=== PATIENT | female | born 1975 | race African-American/Black ===

== ENCOUNTER 2016-04-23 11:00 | Emergency (ER) | payer MEDICARE, OTHER ==
[~2016-04-23] VITALS: Ht 170.2 cm; Wt 114.8 kg
[~2016-04-23 11:00] MED LIST: CEPH-264 PO; FLUC150T PO; HYDR-971 PO; MYCO500T PO; NAPR250T2 PO; NAPR375T3 PO; PHEN-318 PO; PRED10TA16 PO; PROC10TA57 PO; PYRI180T PO; PYRI60TA2 PO
[2016-04-23 11:55] VITALS: BP 149/92
[2016-04-23 12:21] LABS: BILIRUBIN,URINE NEGATIVE (NEG); GLUCOSE,URINE NEGATIVE (NEG); NITRITE,URINE NEGATIVE (NEG); PROTEIN,URINE NEGATIVE (NEG-TRACE); UROBILINOGEN,URINE 0.2 mg/dL (0.2 mg/dL)
[2016-04-23 12:35] LABS: BACTERIA,URINE 0 /HPF (0-FEW); RBC,URINE 0 /HPF (0-2); SQUAMOUS EPITHELIAL CELL,UR MOD /LPF; WBC,URINE 0 /HPF (0-4)
[2016-04-23] MEDS ORDERED: SULF1TAB24 PO (13:20)
--- NOTE | 2016-04-23 13:20 | PHYS DOC ---
Past Medical History Past Medical History: Other Additional Past Medical Histor: MYASTHANIA GRAVIS Past Surgical History: Other Additional Past Surgical Histo: THYMECTOMY Alcohol Use: None Drug Use: None Adult General Chief Complaint Chief Complaint: PAIN ON URINATION [facility] HPI Patient is a 40 year old presents emergency department stating that she has urinary frequency urgency or pain with urination. She states this is been going on for the last couple of days. Patient denies any vaginal discharge. She also states she has a history of constipation that she is taking MiraLAX for this. Patient denies any fever, chills or any nausea or vomiting. Review of Systems Review of Systems Constitutional: Denies fever or chills [] Eyes: Denies change in visual acuity, redness, or eye pain [] HENT: Denies nasal congestion or sore throat. Point of sinus pressure and pain Respiratory: Denies cough or shortness of breath [] Cardiovascular: No additional information not addressed in HPI [] GI: Denies abdominal pain, nausea, vomiting, bloody stools or diarrhea [] : dysuria denies hematuria [] Musculoskeletal: Denies back pain or joint pain [] Integument: Denies rash or skin lesions. She also complains of an area under her left breast that is tender that appears to be like a blackhead she states Neurologic: Denies headache, focal weakness or sensory changes [] Allergies Allergies Allergies Coded Allergies Type Severity Reaction Last Updated Verified No Known Drug Allergies 06/30/13 No Physical Exam Physical Exam Constitutional: Well developed, well nourished, no acute distress, non-toxic appearance. [] HENT: Normocephalic, atraumatic, bilateral external ears normal, oropharynx moist, no oral exudates, nose normal. Bilateral tympanic membranes appear to be normal. Bilateral sinuses frontal and maxillary with tenderness noted throat with no erythematous. Eyes: PERRLA, EOMI, conjunctiva normal, no discharge. [] Neck: Normal range of motion, no tenderness, supple, no stridor. [] Cardiovascular:Heart rate regular rhythm, no murmur [] Lungs & Thorax: Bilateral breath sounds clear to auscultation [] Skin: Warm, dry, no erythema, no rash. Patient with a pea size area on her underside of the left breast that is tender appears to be a blackhead Back: No tenderness Extremities: No tenderness, no cyanosis, no clubbing, ROM intact, no edema. [] Neurologic: Alert and oriented X 3, normal motor function, normal sensory function, no focal deficits noted. [] Psychologic: Affect normal, judgement normal, mood normal. [] Current Patient Data Vital Signs Vital Signs Date Time Temp Pulse Resp B/P Pulse Ox O2 Delivery O2 Flow Rate FiO2 04/23/16 11:55 98.1 67 18 149/92 95 Room Air 98.1 Lab Values Laboratory Tests Test 04/23/16 11:52 Urine Collection Type Unknown Urine Color Yellow Urine Clarity Clear Urine pH 5.0 Urine Specific [place] 1.025 Urine Protein Negativemg/dL (NEG-TRACE) Urine Glucose (UA) Negativemg/dL (NEG) Urine Ketones (Stick) Negativemg/dL (NEG) Urine Blood Trace (NEG) Urine Nitrite Negative (NEG) Urine Bilirubin Negative (NEG) Urine Urobilinogen Dipstick 0.2mg/dL (0.2 mg/dL) Urine Leukocyte Esterase Negative (NEG) Urine RBC 0/HPF (0-2) Urine WBC 0/HPF (0-4) Urine Squamous Epithelial Cells Mod/LPF Urine Bacteria 0/HPF (0-FEW) Urine Mucus Marked/LPF EKG EKG [] Radiology/Procedures Radiology/Procedures [] Course & Med Decision Making Course & Med Decision Making Pertinent Labs and Imaging studies reviewed. (See chart for details) Urine was positive for trace of blood. Patient will be treated with Bactrim. I& D was completed on the tender area under the left breast. Site was cleaned with Betadine 18-gauge needle was used to open up the area without small amount of yellow discharge noted. Patient will be placed on Bactrim for both urinary tract infection skin tenderness in the area that was indeed as well as a sinus infection. Recommended Sudafed for the sinus pressure. Recommended Tylenol and ibuprofen for pain and discomfort. Patient be discharged home in stable condition since symptoms to return back to emergency department been provided. [] Dragon Disclaimer Dragon Disclaimer This electronic medical record was generated, in whole or in part, using a voice recognition dictation system. Departure Departure Impression: Primary Impression: Dysuria Additional Impressions: Sinusitis Abscess Disposition: 01 HOME, SELF-CARE Condition: STABLE Referrals: KHAI KELLEY (PCP) Patient Instructions: Abscess, [id number], Dysuria-Brief, Sinusitis, Easy-to- Read Additional Instructions: Activity as tolerated. Medications as prescribed. Drink plenty of fluids. Drink plenty of water and cranberry juice. Avoid cranberry juice cocktail carbonate beverages citrus fruits and alcohol sees her considered irritants to the bladder. Follow-up with her primary care physician in the next 3-5 days. Return back to emergency prior signs symptoms of become worse. Scripts Sulfamethoxazole/Trimethoprim (Bactrim Ds Tablet)1 Each Tablet1 Tab PO BID #20 TAB Prov:AR WOODWARD NP 04/23/16 Problem Qualifiers AR WOODWARD NP Apr 23, 2016 13:20
[2016-04-23] MEDS ORDERED: FLUC150T PO (13:26)
[2016-04-23 14:43] LABS: NEG OBC UR NEG; POS OBC UR POS
== END 2016-04-23 13:25 | disposition home or self-care (01) ==
LOC: ER 11:00
DX: R30.0 Dysuria (principal); N61.1 Abscess of the breast and nipple; J32.9 Chronic sinusitis, unspecified; K59.00 Constipation, unspecified
CPT/HCPCS: 10060; 81001; 81025; 99283

== ENCOUNTER 2016-09-09 23:37 | Emergency (ER) | payer MEDICARE, OTHER ==
[~2016-09-09] VITALS: Ht 170.2 cm; Wt 117.9 kg
[~2016-09-09 23:37] MED LIST changes: +SULF1TAB24 PO
[2016-09-10 01:10] LABS: BILIRUBIN,URINE NEGATIVE (NEG); GLUCOSE,URINE NEGATIVE (NEG); NITRITE,URINE NEGATIVE (NEG); PROTEIN,URINE NEGATIVE (NEG-TRACE); UROBILINOGEN,URINE 0.2 mg/dL (0.2 mg/dL)
[2016-09-10 01:16] LABS: BACTERIA,URINE FEW /HPF (0-FEW); RBC,URINE 0 /HPF (0-2); SQUAMOUS EPITHELIAL CELL,UR MOD /LPF
[2016-09-10] MEDS ORDERED: DICY10CA53 PO (02:14)
[2016-09-10] MEDS ORDERED: ONDA4TAB10 SL (02:14)
--- NOTE | 2016-09-10 02:14 | PHYS DOC ---
Past Medical History Past Medical History: UTI, Other Additional Past Medical Histor: MYASTHANIA GRAVIS, IVIG tx Past Surgical History: Other Additional Past Surgical Histo: THYMECTOMY Alcohol Use: None Drug Use: None Adult General Chief Complaint Chief Complaint: ABDOMINAL PAIN HPI HPI Patient is a 41 year old female who presents with crampy intermittent lower abdominal pain that is mild and associated with urinary frequency. She also has mild low back pain bilaterally, no trauma; denies saddle anesthesia, bowel or bladder dysfunction, numbness, tingling, weakness. She is concerned about strep pharyngitis exposure from her daughter. She denies fever or chills, chest pain, cough, sore throat, vomiting, diarrhea, constipation, hematuria, vaginal bleeding or discharge. Review of Systems Review of Systems Constitutional: Denies fever or chills [] Eyes: Denies change in visual acuity, redness, or eye pain [] HENT: Denies nasal congestion or sore throat [] Respiratory: Denies cough or shortness of breath [] Cardiovascular: No additional information not addressed in HPI [] GI: Denies vomiting, bloody stools or diarrhea [] : Denies dysuria or hematuria [] Musculoskeletal: Denies joint pain [] Integument: Denies rash or skin lesions [] Neurologic: Denies headache, focal weakness or sensory changes [] Endocrine: Denies polyuria or polydipsia [] Allergies Allergies Allergies Coded Allergies Type Severity Reaction Last Updated Verified No Known Drug Allergies 06/30/13 No Physical Exam Physical Exam Constitutional: Well developed, well nourished, no acute distress, non-toxic appearance. [] HENT: Normocephalic, atraumatic, bilateral external ears normal, oropharynx moist, no oral exudates, nose normal. [] Eyes: PERRLA, EOMI. [] Neck: Normal range of motion, supple. [] Cardiovascular:Heart rate regular rhythm [] Lungs & Thorax: Bilateral breath sounds clear to auscultation [] Abdomen: Bowel sounds normal, soft, no tenderness. [] Skin: Warm, dry, no erythema, no rash. [] Back: No tenderness, no CVA tenderness. [] Extremities: No tenderness, ROM intact, no edema. [] Neurologic: Alert and oriented X 3, normal motor function, normal sensory function, no focal deficits noted. [] Psychologic: Affect normal, judgement normal, mood normal. [] Current Patient Data Vital Signs Vital Signs Date Time Temp Pulse Resp B/P (MAP) Pulse Ox O2 Delivery O2 Flow Rate FiO2 09/10/16 02:15 74 16 123/68 (86) 98 Room Air 09/10/16 01:08 98.4 98.4 Lab Values Laboratory Tests Test 09/10/16 00:12 09/10/16 00:55 POC Urine HCG, Qualitative Hcg negative (Negative) Urine Collection Type Unknown Urine Color Yellow Urine Clarity Turbid Urine pH 6.0 Urine Specific [place] >=1.030 Urine Protein Negative mg/dL (NEG-TRACE) Urine Glucose (UA) Negative mg/dL (NEG) Urine Ketones (Stick) Negative mg/dL (NEG) Urine Blood Negative (NEG) Urine Nitrite Negative (NEG) Urine Bilirubin Negative (NEG) Urine Urobilinogen Dipstick 0.2 mg/dL (0.2 mg/dL) Urine Leukocyte Esterase Negative (NEG) Urine RBC 0 /HPF (0-2) Urine WBC 1-4 /HPF (0-4) Urine Squamous Epithelial Cells Mod /LPF Urine Bacteria Few /HPF (0-FEW) Urine Mucus Marked /LPF Course & Med Decision Making Course & Med Decision Making Pertinent Labs and Imaging studies reviewed. (See chart for details) She appears well on exam. Workup is unremarkable. Discussed supportive care for symptoms. Return precautions given. She understands and agrees with plan. Dragon Disclaimer Dragon Disclaimer This electronic medical record was generated, in whole or in part, using a voice recognition dictation system. Departure Departure Impression: Primary Impression: Abdominal pain Additional Impression: Nausea Disposition: 01 HOME, SELF-CARE Condition: STABLE Referrals: KHAI KELLEY (PCP) Patient Instructions: Abdominal Pain, [id number] Additional Instructions: Zofran as needed for nausea. Take Bentyl to help with abdominal pain. You can also take Tylenol or ibuprofen to help with abdominal pain. Follow-up with your primary care doctor within one week. Return for any concerns. Scripts Dicyclomine Hcl (BENTYL) 10 Mg Capsule 1 CAP PO TID, #15 CAP 0 Refills Prov: Kaylin DAVE MD 09/10/16 Ondansetron (ZOFRAN ODT) 4 Mg Tab.rapdis 1 TAB SL Q8HRS Y for NAUSEA, #10 TAB Prov: Kaylin DAVE MD 09/10/16 Problem Qualifiers Primary Impression: Abdominal pain Abdominal location: lower abdomen, unspecified Qualified Codes: R10.30 - Lower abdominal pain, unspecified Kaylin DAVE MD Sep 10, 2016 02:14
[2016-09-10 02:15] VITALS: BP 123/68
== END 2016-09-10 02:19 | disposition home or self-care (01) ==
LOC: ER 23:37
DX: R10.30 Lower abdominal pain, unspecified (principal); R35.0 Frequency of micturition; R11.0 Nausea; M54.5 Low back pain; Z87.440 Personal history of urinary (tract) infections
CPT/HCPCS: 81001; 81025; 99283

== ENCOUNTER 2016-10-25 17:46 | Emergency (ER) | payer MEDICARE, OTHER ==
[~2016-10-25] VITALS: Ht 170.2 cm; Wt 122.9 kg
[~2016-10-25 17:46] MED LIST changes: +DICY10CA53 PO; +ONDA4TAB10 SL
[2016-10-25 17:53] VITALS: BP 145/93
[2016-10-25 18:38] LABS: BILIRUBIN,URINE NEGATIVE (NEG); GLUCOSE,URINE NEGATIVE (NEG); NITRITE,URINE NEGATIVE (NEG); PH,URINE 7.5; PROTEIN,URINE NEGATIVE (NEG-TRACE); UROBILINOGEN,URINE 0.2 mg/dL (0.2 mg/dL)
[2016-10-25 18:47] LABS: RBC,URINE OCC /HPF (0-2)
[2016-10-25 18:48] LABS: BACTERIA,URINE FEW /HPF (0-FEW); SQUAMOUS EPITHELIAL CELL,UR FEW /LPF; WBC,URINE OCC /HPF (0-4)
[2016-10-25] MEDS ORDERED: SULF1TAB24 PO (19:27)
[2016-10-25] MEDS ORDERED: FLUC150T PO (19:27)
--- NOTE | 2016-10-25 19:27 | PHYS DOC ---
Past Medical History Past Medical History: UTI, Other Additional Past Medical Histor: MYASTHANIA GRAVIS, IVIG tx Past Surgical History: Other Additional Past Surgical Histo: THYMECTOMY Alcohol Use: None Drug Use: None Adult General Chief Complaint Chief Complaint: URINARY FREQUENCY HPI HPI Patient is a 41 year old female with history of Graves' disease, and chronic UTIs who presents today complaining of UTI symptoms including urgency frequency dysuria and abdominal cramping for 3 days. Patient states this is her typical UTI and she would like to be treated. Patient denies any fever nausea vomiting. Review of Systems Review of Systems Constitutional: Denies fever or chills [] Eyes: Denies change in visual acuity, redness, or eye pain [] HENT: Denies nasal congestion or sore throat [] Respiratory: Denies cough or shortness of breath [] Cardiovascular: No additional information not addressed in HPI [] GI: Abdominal cramping : Dysuria urgency and frequency Musculoskeletal: Denies back pain or joint pain [] Integument: Denies rash or skin lesions [] Neurologic: Denies headache, focal weakness or sensory changes [] Endocrine: Denies polyuria or polydipsia [] Allergies Allergies Allergies Coded Allergies Type Severity Reaction Last Updated Verified No Known Drug Allergies 06/30/13 No Physical Exam Physical Exam Constitutional: Well developed, well nourished, no acute distress, non-toxic appearance. [] HENT: Normocephalic, atraumatic, bilateral external ears normal, oropharynx moist, no oral exudates, nose normal. [] Eyes: PERRLA, EOMI, conjunctiva normal, no discharge. [] Neck: Normal range of motion, no tenderness, supple, no stridor. [] Cardiovascular:Heart rate regular rhythm, no murmur [] Lungs & Thorax: Bilateral breath sounds clear to auscultation [] Abdomen: Bowel sounds normal, soft, no tenderness, no masses, no pulsatile masses. [] Skin: Warm, dry, no erythema, no rash. [] Back: No tenderness, no CVA tenderness. [] Extremities: No tenderness, no cyanosis, no clubbing, ROM intact, no edema. [] Neurologic: Alert and oriented X 3, normal motor function, normal sensory function, no focal deficits noted. [] Psychologic: Affect normal, judgement normal, mood normal. [] Current Patient Data Vital Signs Vital Signs Date Time Temp Pulse Resp B/P (MAP) Pulse Ox O2 Delivery O2 Flow Rate FiO2 10/25/16 17:53 98.4 71 16 98 Room Air 98.4 Lab Values Laboratory Tests Test 10/25/16 17:14 10/25/16 18:00 POC Urine HCG, Qualitative Hcg negative (Negative) Urine Collection Type Void Urine Color Yellow Urine Clarity Clear Urine pH 7.5 Urine Specific [place] <=1.005 Urine Protein Negative mg/dL (NEG-TRACE) Urine Glucose (UA) Negative mg/dL (NEG) Urine Ketones (Stick) Negative mg/dL (NEG) Urine Blood Negative (NEG) Urine Nitrite Negative (NEG) Urine Bilirubin Negative (NEG) Urine Urobilinogen Dipstick 0.2 mg/dL (0.2 mg/dL) Urine Leukocyte Esterase Negative (NEG) Urine RBC Occ /HPF (0-2) Urine WBC Occ /HPF (0-4) Urine Squamous Epithelial Cells Few /LPF Urine Bacteria Few /HPF (0-FEW) EKG EKG [] Radiology/Procedures Radiology/Procedures [] Course & Med Decision Making Course & Med Decision Making Pertinent Labs and Imaging studies reviewed. (See chart for details) This is a 41-year-old female patient presented to the ED with the UTI symptoms. Urine is negative for infection. Patient states she has history of frequent UTIs and would like to be given antibiotics regardless of the negative urine results because she gets immunosuppressant infusions for Graves' disease and if she gets a UTI it will be a very bad infection. She feels this is the beginning of UTI for her. Urine was sent culture. He was discharged with Bactrim for 3 days, she also requested fluconazole which was given to her. She is to follow- up with her own PCP. Dragon Disclaimer Dragon Disclaimer This electronic medical record was generated, in whole or in part, using a voice recognition dictation system. Departure Departure Impression: Primary Impression: Dysuria Disposition: 01 HOME, SELF-CARE Condition: STABLE Referrals: KHAI KELLEY (PCP) Follow-up with your doctor in 1-2 weeks Patient Instructions: Dysuria-Brief Additional Instructions: You were seen with urinary tract infection symptoms. Take the medications provided as ordered. Follow-up with your doctor in the next 1 week. Scripts Fluconazole (DIFLUCAN) 150 Mg Tablet 1 TAB PO ONCE, #1 TAB 1 Refill Prov: RASHEED SCALES APRN 10/25/16 Sulfamethoxazole/Trimethoprim (BACTRIM DS TABLET) 1 Each Tablet 1 TAB PO BID, #20 TAB Prov: RASHEED SCALES APRN 10/25/16 RASHEED SCALES APRN Oct 25, 2016 19:27
== END 2016-10-25 19:39 | disposition home or self-care (01) ==
LOC: ER 17:46
DX: R30.0 Dysuria (principal); R35.0 Frequency of micturition; R10.9 Unspecified abdominal pain; Z87.440 Personal history of urinary (tract) infections
CPT/HCPCS: 81001; 81025; 99283

== ENCOUNTER 2016-12-27 12:36 | Emergency (ER) | payer MEDICARE, OTHER ==
[~2016-12-27 12:36] MED LIST changes: +NAPR-695 PO; -NAPR250T2 PO; +NAPR250T6 PO; -NAPR375T3 PO
--- NOTE | 2016-12-27 13:13 | PHYS DOC ---
Past Medical History Past Medical History: UTI, Other Additional Past Medical Histor: MYASTHANIA GRAVIS, IVIG tx Past Surgical History: Other Additional Past Surgical Histo: THYMECTOMY Alcohol Use: None Drug Use: None Adult General Chief Complaint Chief Complaint: ABDOMINAL PAIN HPI HPI Patient is a 41 year old -[place] female who presents with suprapubic abdominal cramps. She states this is the same cream she gets when she has her period or urinary tract infection. She states she is one week late on her period. She denies any nausea vomiting or diarrhea. She denies any vaginal bleeding or discharge. She states she's been stressed out because her first cousin was killed, and the was a couple days ago. Review of Systems Review of Systems Constitutional: Denies fever or chills [] Eyes: Denies change in visual acuity, redness, or eye pain [] HENT: Denies nasal congestion or sore throat [] Respiratory: Denies cough or shortness of breath [] Cardiovascular: No additional information not addressed in HPI [] GI: Positive for abdominal pain, Denies nausea, vomiting, bloody stools or diarrhea [] : Denies dysuria or hematuria [] Musculoskeletal: Denies back pain or joint pain [] Integument: Denies rash or skin lesions [] Neurologic: Denies headache, focal weakness or sensory changes [] Endocrine: Denies polyuria or polydipsia [] Current Medications Current Medications Current Medications Medications (Trade) Dose Ordered Sig/[facility] Start Time Stop Time Status Last Admin Dose Admin Levofloxacin (Levaquin) 500 mg 1X ONCE 12/27/16 14:45 12/27/16 14:47 DC Allergies Allergies Allergies Coded Allergies Type Severity Reaction Last Updated Verified No Known Drug Allergies 06/30/13 No Physical Exam Physical Exam Constitutional: Well developed, well nourished, no acute distress, non-toxic appearance. [] HENT: Normocephalic, atraumatic, bilateral external ears normal, oropharynx moist, no oral exudates, nose normal. [] Eyes: PERRLA, EOMI, conjunctiva normal, no discharge. [] Neck: Normal range of motion, no tenderness, supple, no stridor. [] Cardiovascular:Heart rate regular rhythm, no murmur [] Lungs & Thorax: Bilateral breath sounds clear to auscultation [] Abdomen: Bowel sounds normal, soft, no tenderness, no masses, no pulsatile masses. [] Skin: Warm, dry, no erythema, no rash. [] Back: No tenderness, no CVA tenderness. [] Extremities: No tenderness, no cyanosis, no clubbing, ROM intact, no edema. [] Neurologic: Alert and oriented X 3, normal motor function, normal sensory function, no focal deficits noted. [] Psychologic: Affect normal, judgement normal, mood normal. [] Current Patient Data Vital Signs Vital Signs Date Time Temp Pulse Resp B/P (MAP) Pulse Ox O2 Delivery O2 Flow Rate FiO2 12/27/16 13:30 74 154/79 (104) 98 Room Air 12/27/16 13:04 98.8 18 98.8 Lab Values Laboratory Tests Test 12/27/16 13:01 12/27/16 13:12 12/27/16 13:40 Urine Collection Type Unknown Urine Color Yellow Urine Clarity Clear Urine pH 6.0 Urine Specific [place] 1.020 Urine Protein Negative mg/dL (NEG-TRACE) Urine Glucose (UA) Negative mg/dL (NEG) Urine Ketones (Stick) Negative mg/dL (NEG) Urine Blood Negative (NEG) Urine Nitrite Negative (NEG) Urine Bilirubin Negative (NEG) Urine Urobilinogen Dipstick 0.2 mg/dL (0.2 mg/dL) Urine Leukocyte Esterase Large (NEG) Urine RBC 0 /HPF (0-2) Urine WBC 20-40 /HPF (0-4) Urine Squamous Epithelial Cells Many /LPF Urine Bacteria Moderate /HPF (0-FEW) Urine Mucus Marked /LPF POC Urine HCG, Qualitative Hcg negative (Negative) White Blood Count 6.8 x10^3/uL (4.0-11.0) Red Blood Count 5.03 x10^6/uL (3.50-5.40) Hemoglobin 14.1 g/dL (12.0-15.5) Hematocrit 42.1 % (36.0-47.0) Mean Corpuscular Volume 84 fL (79-100) Mean Corpuscular Hemoglobin 28 pg (25-35) Mean Corpuscular Hemoglobin Concent 33 g/dL (31-37) Red Cell Distribution Width 13.5 % (11.5-14.5) Platelet Count 233 x10^3/uL (140-400) Neutrophils (%) (Auto) 53 % (31-73) Lymphocytes (%) (Auto) 32 % (24-48) Monocytes (%) (Auto) 9 % (0-9) Eosinophils (%) (Auto) 4 % (0-3) H Basophils (%) (Auto) 1 % (0-3) Neutrophils # (Auto) 3.6 x10^3uL (1.8-7.7) Lymphocytes # (Auto) 2.2 x10^3/uL (1.0-4.8) Monocytes # (Auto) 0.6 x10^3/uL (0.0-1.1) Eosinophils # (Auto) 0.3 x10^3/uL (0.0-0.7) Basophils # (Auto) 0.1 x10^3/uL (0.0-0.2) Prothrombin Time 11.7 SEC (11.7-14.0) Prothrombin Time INR 0.9 (0.8-1.1) PTT 28 SEC (24-38) Sodium Level 138 mmol/L (136-145) Potassium Level 3.8 mmol/L (3.5-5.1) Chloride Level 104 mmol/L (98-107) Carbon Dioxide Level 27 mmol/L (21-32) Anion Gap 7 (6-14) Blood Urea Nitrogen 10 mg/dL (7-20) Creatinine 0.7 mg/dL (0.6-1.0) Estimated GFR (Cockcroft-Gault) 112.1 Glucose Level 100 mg/dL (70-99) H Calcium Level 9.3 mg/dL (8.5-10.1) Total Bilirubin 0.2 mg/dL (0.2-1.0) Direct Bilirubin < 0.1 mg/dL (0.0-0.2) Aspartate Amino Transferase (AST) 15 U/L (15-37) Alanine Aminotransferase (ALT) 15 U/L (14-59) Alkaline Phosphatase 72 U/L (46-116) Creatine Kinase 186 U/L (26-192) Creatine Kinase MB (Mass) < 0.5 ng/mL (0.0-3.6) Creatine Kinase MB Relative Index 0.3 % (0-4) Total Protein 7.5 g/dL (6.4-8.2) Albumin 3.4 g/dL (3.4-5.0) Lipase 254 U/L (73-393) Laboratory Tests 12/27/16 13:40 Laboratory Tests 12/27/16 13:40 EKG EKG [] Radiology/Procedures Radiology/Procedures [] Impressions: UTI Course & Med Decision Making Course & Med Decision Making Pertinent Labs and Imaging studies reviewed. (See chart for details) Labs are nonacute. She does have urinary tract infection. We'll give 1 dose of Levaquin and discharged home. Return precautions given. Dragon Disclaimer Dragon Disclaimer This electronic medical record was generated, in whole or in part, using a voice recognition dictation system. Departure Departure Impression: Primary Impression: Urinary tract bacterial infections Disposition: HOME, SELF-CARE Condition: STABLE Referrals: KHAI KELLEY (PCP) Patient Instructions: Urinary Tract Infection Additional Instructions: You have a bladder infection based on labs and urinalysis. You will need take antibiotics for the next 3 days. Return ER if you have severe pain, high fevers , uncontrolled nausea vomiting or other concerns. Scripts Levofloxacin (LEVAQUIN) 500 Mg Tablet 1 TAB PO DAILY, #3 TAB Prov: CIRILO ANDERSON MD 12/27/16 CIRILO ANDERSON MD Dec 27, 2016 13:13
[2016-12-27 13:30] VITALS: BP 154/79
[2016-12-27 13:48] LABS: BILIRUBIN,URINE NEGATIVE (NEG); GLUCOSE,URINE NEGATIVE (NEG); NITRITE,URINE NEGATIVE (NEG); PROTEIN,URINE NEGATIVE (NEG-TRACE); UROBILINOGEN,URINE 0.2 mg/dL (0.2 mg/dL)
[2016-12-27 13:56] LABS: BASO # 0.1 x10^3/uL (0.0-0.2); BASO % 1 % (0-3); EOS % 4 % (0-3); HEMATOCRIT 42.1 % (36.0-47.0); HEMOGLOBIN 14.1 g/dL (12.0-15.5); LYMPH # 2.2 x10^3/uL (1.0-4.8); LYMPH % 32 % (24-48); MEAN CORPUSCULAR HEMOGLOBIN 28 pg (25-35); MEAN CORPUSCULAR HGB CONC 33 g/dL (31-37); MEAN CORPUSCULAR VOLUME 84 fL (79-100); MONO % 9 % (0-9); NEUT % 53 % (31-73); PLATELET COUNT 233 x10^3/uL (140-400); RED BLOOD COUNT 5.03 x10^6/uL (3.50-5.40); RED CELL DISTRIBUTION WIDTH 13.5 % (11.5-14.5); WHITE BLOOD COUNT 6.8 x10^3/uL (4.0-11.0)
[2016-12-27 14:02] LABS: BACTERIA,URINE MODERATE /HPF (0-FEW); RBC,URINE 0 /HPF (0-2); SQUAMOUS EPITHELIAL CELL,UR MANY /LPF; WBC,URINE 20-40 /HPF (0-4)
[2016-12-27 14:04] LABS: INR 0.9 (0.8-1.1); PROTHROMBIN TIME PATIENT 11.7 SEC (11.7-14.0)
[2016-12-27 14:06] LABS: ANION GAP 7 (6-14); BLOOD UREA NITROGEN 10 mg/dL (7-20); CALCIUM 9.3 mg/dL (8.5-10.1); CARBON DIOXIDE 27 mmol/L (21-32); CHLORIDE 104 mmol/L (98-107); CREATININE 0.7 mg/dL (0.6-1.0); GFR 112.1; GLUCOSE 100 mg/dL (70-99); POTASSIUM 3.8 mmol/L (3.5-5.1); SODIUM 138 mmol/L (136-145)
[2016-12-27 14:11] LABS: ALBUMIN 3.4 g/dL (3.4-5.0); ALK PHOS 72 U/L (46-116); ALT (SGPT) 15 U/L (14-59); AST (SGOT) 15 U/L (15-37); DIRECT BILIRUBIN < 0.1 mg/dL (0.0-0.2); TOTAL BILIRUBIN 0.2 mg/dL (0.2-1.0); TOTAL PROTEIN 7.5 g/dL (6.4-8.2)
[2016-12-27 14:19] LABS: CREATINE KINASE 186 U/L (26-192)
[2016-12-27 14:20] LABS: CKMB MASS < 0.5 ng/mL (0.0-3.6)
[2016-12-27] MEDS ORDERED: LEVO500T59 PO (14:41)
[2016-12-27] MEDS ORDERED: FLUCONAZOLE 100 MG TABLET. PO ONE (15:15)
== END 2016-12-27 15:10 | disposition home or self-care (01) ==
LOC: ER 12:36
DX: N39.0 Urinary tract infection, site not specified (principal); B96.89 Other specified bacterial agents as the cause of diseases classified elsewhere; Z87.440 Personal history of urinary (tract) infections
CPT/HCPCS: 36415; 80048; 80076; 81001; 81025; 82553; 83690; 85025; 85610; 85730; 87086; 99284

== ENCOUNTER 2017-04-06 04:24 | Emergency (ER) | payer MEDICARE, OTHER ==
[2017-04-06] MEDS: IPRATRPIUM/ALBUTEROL 0.5/2.5MG 3 ML NEBU. NEB (04:43)
[2017-04-06] MEDS: methylPREDNISolone SOD SUCC PF 125 MG/2 ML VIAL. IV (05:04)
[2017-04-06] MEDS: IV NORMAL SALINE 1000ML BAG 1,000 ML IV (05:10)
[2017-04-06 05:14] LABS: BASO # 0.1 x10^3/uL (0.0-0.2); BASO % 1 % (0-3); EOS # 0.4 x10^3/uL (0.0-0.7); EOS % 8 % (0-3); HEMATOCRIT 41.7 % (36.0-47.0); HEMOGLOBIN 13.7 g/dL (12.0-15.5); LYMPH # 1.6 x10^3/uL (1.0-4.8); LYMPH % 31 % (24-48); MEAN CORPUSCULAR HEMOGLOBIN 28 pg (25-35); MEAN CORPUSCULAR HGB CONC 33 g/dL (31-37); MEAN CORPUSCULAR VOLUME 86 fL (79-100); MONO % 20 % (0-9); NEUT % 40 % (31-73); PLATELET COUNT 220 x10^3/uL (140-400); RED BLOOD COUNT 4.88 x10^6/uL (3.50-5.40); RED CELL DISTRIBUTION WIDTH 13.5 % (11.5-14.5); WHITE BLOOD COUNT 5.1 x10^3/uL (4.0-11.0)
[2017-04-06 05:26] LABS: ANION GAP 16 (6-14); BLOOD UREA NITROGEN 10 mg/dL (7-20); CALCIUM 8.9 mg/dL (8.5-10.1); CARBON DIOXIDE 23 mmol/L (21-32); CHLORIDE 102 mmol/L (98-107); CREATININE 0.9 mg/dL (0.6-1.0); GFR 83.9; GLUCOSE 134 mg/dL (70-99); POTASSIUM 3.3 mmol/L (3.5-5.1); SODIUM 141 mmol/L (136-145)
[2017-04-06 05:31] LABS: ADD MAN DIFF? YES
[2017-04-06 05:37] LABS: D-DIMER < 0.27 ug/mlFEU (0.00-0.50)
[2017-04-06 05:57] LABS: TROPONINI < 0.017 ng/mL (0.000-0.055)
[2017-04-06 10:40] LABS: % ATYL 3 % (0-0); % BANDS 9 % (0-9); % EOS 6 % (0-5); % LYMPHS 29 % (24-48); % MONOS 15 % (0-10); % SEGS 38 % (35-66); PLT ESTIMATE ADEQUATE (ADEQUATE)
== END 2017-04-06 06:52 | disposition home or self-care (01) ==
LOC: ER 04:24
DX: J06.9 Acute upper respiratory infection, unspecified (principal); J98.01 Acute bronchospasm; R53.1 Weakness; J45.909 Unspecified asthma, uncomplicated; G70.00 Myasthenia gravis without (acute) exacerbation
CPT/HCPCS: 36415; 71045; 80048; 84484; 85007; 85025; 85379; 93005; 94640; 96361; 96374; 99284-25; J2930; J7030; J7620

== ENCOUNTER 2017-06-02 02:21 | Emergency (ER) | payer MEDICARE, OTHER ==
[2017-06-02] MEDS ORDERED: DEXAMETHASONE SOD PHOS 4 MG/ML VIAL IM (03:30)
[2017-06-02 09:36] LABS: NEGATIVE OBC STREP NEG; POSITIVE OBC STREP POS
== END 2017-06-02 03:20 | disposition home or self-care (01) ==
LOC: ER 02:21
DX: J06.9 Acute upper respiratory infection, unspecified (principal)
CPT/HCPCS: 87070; 87880; 99283

== ENCOUNTER 2017-11-27 15:08 | Emergency (ER) | payer MEDICARE, OTHER ==
[~2017-11-27] VITALS: Ht 170.2 cm; Wt 117.0 kg
[~2017-11-27 15:08] MED LIST changes: +AZIT250T6 PO; +CETI10TA22 PO; +CYCL5TAB PO; +FOLI1TAB16 PO; +IBUP200T44 PO; +IMMU10VI8 IJ; +LEVO500T59 PO; +LISI1TAB5 PO; +OMEP10SU2 PO; +PNV1TABL71 PO; +POLY17PO29 PO; +PRED50TA PO; +PROAIR HFA8.5 GM INH; +PROVENTIL HFA6.7 GM IH; +RANI150T21 PO; +RITU10VI IV; +TRAM-48 PO; +[UNRECOGNIZED DRUG - OTHER]
--- NOTE | 2017-11-27 16:02 | PHYS DOC ---
Past Medical History Past Medical History: UTI, Other Additional Past Medical Histor: MYASTHANIA GRAVIS, IVIG tx,rituxin Past Surgical History: Other Additional Past Surgical Histo: THYMECTOMY, right fallopian tube Alcohol Use: None Drug Use: None Adult General Chief Complaint Chief Complaint: [facility] HPI Patient is a 42 year old female who presents with left abdomen pain that feels like a cramping that wraps around to her left flank since last week with some nausea. Patient states her last period was October 18. Patient states she has no abnormal vaginal discharge or bleeding. Patient denies any urinary symptoms or blood in her urine. Patient states that she does have slight nausea. Patient rates her pain a 3 out of 10 and states she's been taking Excedrin and Midol with the last being at 0600 this morning. Review of Systems Review of Systems Constitutional: Denies fever or chills [] Eyes: Denies change in visual acuity, redness, or eye pain [] HENT: Denies nasal congestion or sore throat [] Respiratory: Denies cough or shortness of breath [] Cardiovascular: No additional information not addressed in HPI [] GI: Left abdominal cramping pain, nausea. Denies vomiting, bloody stools or diarrhea [] : Left lower back and flank pain. Denies dysuria or hematuria [] Musculoskeletal: Denies back pain or joint pain [] Integument: Denies rash or skin lesions [] Neurologic: Denies headache, focal weakness or sensory changes [] Endocrine: Denies polyuria or polydipsia [] All other systems were reviewed and found to be within normal limits, except as documented in this note. Allergies Allergies Allergies Coded Allergies Type Severity Reaction Last Updated Verified No Known Drug Allergies 06/30/13 No Physical Exam Physical Exam Constitutional: Well developed, well nourished, no acute distress, non-toxic appearance. [] HENT: Normocephalic, atraumatic, bilateral external ears normal, oropharynx moist, no oral exudates, nose normal. [] Eyes: PERRLA, EOMI, conjunctiva normal, no discharge. [] Neck: Normal range of motion, no tenderness, supple, no stridor. [] Cardiovascular:Heart rate regular rhythm, no murmur [] Lungs & Thorax: Bilateral breath sounds clear to auscultation [] Abdomen: Bowel sounds normal, soft, no tenderness, no masses, no pulsatile masses. [] Skin: Warm, dry, no erythema, no rash. [] Back: No tenderness, no CVA tenderness. [] Extremities: No tenderness, no cyanosis, no clubbing, ROM intact, no edema. [] Neurologic: Alert and oriented X 3, normal motor function, normal sensory function, no focal deficits noted. [] Psychologic: Affect normal, judgement normal, mood normal. [] Current Patient Data Vital Signs Vital Signs Date Time Temp Pulse Resp B/P (MAP) Pulse Ox O2 Delivery O2 Flow Rate FiO2 11/27/17 18:11 81 18 192/96 (128) 96 Room Air 11/27/17 15:27 98.9 98.9 Lab Values Laboratory Tests Test 11/27/17 15:22 11/27/17 15:35 11/27/17 16:40 Urine Collection Type Unknown Urine Color Yellow Urine Clarity Clear Urine pH 5.0 Urine Specific [place] 1.025 Urine Protein Negative mg/dL (NEG-TRACE) Urine Glucose (UA) Negative mg/dL (NEG) Urine Ketones (Stick) Negative mg/dL (NEG) Urine Blood Trace (NEG) Urine Nitrite Negative (NEG) Urine Bilirubin Negative (NEG) Urine Urobilinogen Dipstick 0.2 mg/dL (0.2 mg/dL) Urine Leukocyte Esterase Moderate (NEG) Urine RBC Occ /HPF (0-2) Urine WBC 5-10 /HPF (0-4) Urine Squamous Epithelial Cells Many /LPF Urine Bacteria Many /HPF (0-FEW) Urine Mucus Marked /LPF POC Urine HCG, Qualitative Hcg positive (Negative) White Blood Count 6.1 x10^3/uL (4.0-11.0) Red Blood Count 4.42 x10^6/uL (3.50-5.40) Hemoglobin 12.6 g/dL (12.0-15.5) Hematocrit 37.1 % (36.0-47.0) Mean Corpuscular Volume 84 fL (79-100) Mean Corpuscular Hemoglobin 28 pg (25-35) Mean Corpuscular Hemoglobin Concent 34 g/dL (31-37) Red Cell Distribution Width 13.9 % (11.5-14.5) Platelet Count 251 x10^3/uL (140-400) Neutrophils (%) (Auto) 58 % (31-73) Lymphocytes (%) (Auto) 26 % (24-48) Monocytes (%) (Auto) 9 % (0-9) Eosinophils (%) (Auto) 6 % (0-3) H Basophils (%) (Auto) 1 % (0-3) Neutrophils # (Auto) 3.5 x10^3uL (1.8-7.7) Lymphocytes # (Auto) 1.6 x10^3/uL (1.0-4.8) Monocytes # (Auto) 0.5 x10^3/uL (0.0-1.1) Eosinophils # (Auto) 0.4 x10^3/uL (0.0-0.7) Basophils # (Auto) 0.1 x10^3/uL (0.0-0.2) Maternal Serum HCG Beta Subunit 16 mIU/mL (0-5) H Sodium Level 136 mmol/L (136-145) Potassium Level 3.4 mmol/L (3.5-5.1) L Chloride Level 106 mmol/L (98-107) Carbon Dioxide Level 22 mmol/L (21-32) Anion Gap 8 (6-14) Blood Urea Nitrogen 8 mg/dL (7-20) Creatinine 0.7 mg/dL (0.6-1.0) Estimated GFR (Cockcroft-Gault) 111.6 Glucose Level 100 mg/dL (70-99) H Calcium Level 8.9 mg/dL (8.5-10.1) Laboratory Tests 11/27/17 16:40 Laboratory Tests 11/27/17 16:40 Microbiology 11/27/17 Urine Culture - Final, Complete 11/27/17 Urine Culture Result 1 (BHARGAVI) - Final, Complete EKG EKG [] Radiology/Procedures Radiology/Procedures Pelvic ultrasound[] Impressions: [facility] [address] [place] [address] IMAGING REPORT Signed PATIENT: DAVID GALLARDO ACCOUNT: [id number] : 1975 LOCATION: ER AGE: 42 SEX: F EXAM STATUS: REG ER ORD. PHYSICIAN: AR MITCHELL APRN REASON: and left sided abdominal pain PROCEDURE: OB <14 WKS W/TV Early OB ultrasound History: Left pelvic pain. Comparison: None. Technique: Transabdominal imaging was performed for initial evaluation of the pelvis. Endovaginal imaging was performed to evaluate optimally the lower uterine segment and to increase sensitivity for detection of intrauterine . Findings: Transabdominal imaging: Uterus measures 10.4 cm in length. No convincing intrauterine is identified. The endometrium is thickened at 29 mm. Posterior uterus demonstrates a subserosal leiomyoma measuring 1.8 cm Left ovary measures 4.0 x 5.6 x 4.1 cm and demonstrates 3.5 cm corpus luteum cyst. Right ovary is not visualized. Left ovary demonstrates normal vascular flow upon Doppler interrogation and is without evidence of torsion. Endovaginal imaging: Endometrial thickness is 19 mm cyst. No intrauterine is identified. Nabothian cyst is seen. Left ovary measures 4.3 x 3.4 x 2.6 cm and demonstrates a corpus luteum cyst measuring 3.3 cm. Left ovary demonstrates normal vascular flow upon Doppler interrogation and is without evidence of torsion. Right ovary is not visualized. No adnexal masses are seen. Impression: 1. No intrauterine is identified. Correlative beta hCG levels are not available at the time of dictation. Statistically, most likely possibility is exceedingly early intrauterine . Ectopic cannot be excluded, although there is no positive ultrasound evidence of such. Serial beta hCG levels and pelvic ultrasound could be performed as clinically indicated. 2. Uterine leiomyoma. Electronically signed by: Hilario Ramirez MD (11/27/2017 4:41 PM) [facility] DICTATED and SIGNED BY: HILARIO RAMIREZ MD DATE: 11/27/17 1640 Course & Med Decision Making Course & Med Decision Making Patient is a 42 year old female who presents with left abdomen pain that feels like a cramping that wraps around to her left flank since last week with some nausea. Patient states her last period was October 18. Patient states she has no abnormal vaginal discharge or bleeding. Patient denies any urinary symptoms or blood in her urine. Patient states that she does have slight nausea. Patient rates her pain a 3 out of 10 and states she's been taking Excedrin and Midol with the last being at 0600 this morning. Patient does have a history of myasthenia gravis, right tubectomy with an ectopic back in August, thyroidectomy, and myasthenia gravis. Patient is on myasthenia gravis medications and receives IVIG times a week. On examination patient's abdomen is soft, nontender, and without masses. Patient is neurologically intact. Patient denies any numbness or tingling at this time. Patient denies any chest pain or shortness of breath. Patient has no CVA tenderness. Patient is afebrile. Patient's urine blood test came back positive for day in the ED. I have told the patient but she did not seem surprised. Pelvic ultrasound shows 1. No intrauterine is identified. Correlative beta hCG levels are not available at the time of dictation. Statistically, most likely possibility is exceedingly early intrauterine . Ectopic cannot be excluded, although there is no positive ultrasound evidence of such. Patients Serum Quant is 16. Serial beta hCG levels and pelvic ultrasound could be performed as clinically indicated. 2. Uterine leiomyoma. Patient will need to follow-up with her [facility] END SPECIALIST as soon as possible. Patient needs to return to ER if pain comes intense or begins vomiting or running a fever. Patient is to take Tylenol for any kind of pain. Staff Physician Addendum: I was working in the ER during the course of this patient's visit. I was available for consultation as needed, but I was not directly involved in the care of this patient. [] Dragon Disclaimer Dragon Disclaimer This electronic medical record was generated, in whole or in part, using a voice recognition dictation system. Departure Departure Impression: Primary Impression: Abdominal pain Additional Impression: Disposition: 01 HOME, SELF-CARE Condition: STABLE Referrals: KHAI KELLEY MD (PCP) Patient Instructions: ABCs of , Abdominal Pain During Additional Instructions: Follow up with your FRONT END SPECIALIST as soon as possible. Take Tylenol for pain. Return for increasing abdominal pain or vaginal bleeding. Problem Qualifiers Primary Impression: Abdominal pain Abdominal location: left lower quadrant Qualified Codes: R10.32 - Left lower quadrant pain Additional Impression: Weeks of gestation: unspecified Qualified Codes: Z34.90 - Encounter for supervision of normal , unspecified, unspecified trimester AR MITCHELL APRN Nov 27, 2017 16:02 LEATHA MADERA MD Nov 30, 2017 02:06
[2017-11-27 16:30] LABS: BILIRUBIN,URINE NEGATIVE (NEG); CLARITY,URINE CLEAR; COLOR,URINE YELLOW; NITRITE,URINE NEGATIVE (NEG); PROTEIN,URINE NEGATIVE (NEG-TRACE); UROBILINOGEN,URINE 0.2 mg/dL (0.2 mg/dL)
[2017-11-27 16:44] LABS: BACTERIA,URINE MANY /HPF (0-FEW); RBC,URINE OCC /HPF (0-2); SQUAMOUS EPITHELIAL CELL,UR MANY /LPF
--- NOTE | 2017-11-27 16:45 | RAD ---
Early OB ultrasound History: Left pelvic pain. Comparison: None. Technique: Transabdominal imaging was performed for initial evaluation of the pelvis. Endovaginal imaging was performed to evaluate optimally the lower uterine segment and to increase sensitivity for detection of intrauterine . Findings: Transabdominal imaging: Uterus measures 10.4 cm in length. No convincing intrauterine is identified. The endometrium is thickened at 29 mm. Posterior uterus demonstrates a subserosal leiomyoma measuring 1.8 cm Left ovary measures 4.0 x 5.6 x 4.1 cm and demonstrates 3.5 cm corpus luteum cyst. Right ovary is not visualized. Left ovary demonstrates normal vascular flow upon Doppler interrogation and is without evidence of torsion. Endovaginal imaging: Endometrial thickness is 19 mm cyst. No intrauterine is identified. Nabothian cyst is seen. Left ovary measures 4.3 x 3.4 x 2.6 cm and demonstrates a corpus luteum cyst measuring 3.3 cm. Left ovary demonstrates normal vascular flow upon Doppler interrogation and is without evidence of torsion. Right ovary is not visualized. No adnexal masses are seen. Impression: 1. No intrauterine is identified. Correlative beta hCG levels are not available at the time of dictation. Statistically, most likely possibility is exceedingly early intrauterine . Ectopic cannot be excluded, although there is no positive ultrasound evidence of such. Serial beta hCG levels and pelvic ultrasound could be performed as clinically indicated. 2. Uterine leiomyoma. Electronically signed by: Hilario Hager MD (11/27/2017 4:41 PM) [facility]
[2017-11-27 16:59] LABS: BASO # 0.1 x10^3/uL (0.0-0.2); BASO % 1 % (0-3); EOS # 0.4 x10^3/uL (0.0-0.7); EOS % 6 % (0-3); HEMATOCRIT 37.1 % (36.0-47.0); HEMOGLOBIN 12.6 g/dL (12.0-15.5); LYMPH # 1.6 x10^3/uL (1.0-4.8); LYMPH % 26 % (24-48); MEAN CORPUSCULAR HEMOGLOBIN 28 pg (25-35); MEAN CORPUSCULAR HGB CONC 34 g/dL (31-37); MEAN CORPUSCULAR VOLUME 84 fL (79-100); MONO # 0.5 x10^3/uL (0.0-1.1); MONO % 9 % (0-9); NEUT # 3.5 x10^3uL (1.8-7.7); NEUT % 58 % (31-73); PLATELET COUNT 251 x10^3/uL (140-400); RED BLOOD COUNT 4.42 x10^6/uL (3.50-5.40); RED CELL DISTRIBUTION WIDTH 13.9 % (11.5-14.5); WHITE BLOOD COUNT 6.1 x10^3/uL (4.0-11.0)
[2017-11-27 17:17] LABS: CALCIUM 8.9 mg/dL (8.5-10.1); CREATININE 0.7 mg/dL (0.6-1.0); GFR 111.6; POTASSIUM 3.4 mmol/L (3.5-5.1)
[2017-11-27 18:11] VITALS: BP 192/96
== END 2017-11-27 18:12 | disposition home or self-care (01) ==
LOC: ER 15:08
DX: Z33.1 Pregnant state, incidental (principal); R10.9 Unspecified abdominal pain; M54.5 Low back pain; R11.0 Nausea; Z87.440 Personal history of urinary (tract) infections; Z98.890 Other specified postprocedural states
CPT/HCPCS: 36415; 76801; 76817; 80048; 81001; 81025; 84702; 85025; 86900; 86901; 87086; 99285-25

== ENCOUNTER 2017-12-24 00:53 | Emergency (ER) | payer MEDICARE, OTHER ==
[~2017-12-24] VITALS: Ht 170.2 cm; Wt 117.0 kg
[2017-12-24 02:13] LABS: BILIRUBIN,URINE NEGATIVE (NEG); CLARITY,URINE CLEAR; COLOR,URINE YELLOW; NITRITE,URINE NEGATIVE (NEG); PH,URINE 5.5; PROTEIN,URINE NEGATIVE (NEG-TRACE); UROBILINOGEN,URINE 0.2 mg/dL (0.2 mg/dL)
[2017-12-24 02:22] LABS: BACTERIA,URINE FEW /HPF (0-FEW); RBC,URINE OCC /HPF (0-2); WBC,URINE OCC /HPF (0-4)
[2017-12-24 02:23] LABS: U PREG PATIENT NEGATIVE (NEG)
[2017-12-24 02:47] LABS: BASO # 0.1 x10^3/uL (0.0-0.2); BASO % 1 % (0-3); EOS # 0.2 x10^3/uL (0.0-0.7); EOS % 5 % (0-3); HEMATOCRIT 40.2 % (36.0-47.0); HEMOGLOBIN 13.7 g/dL (12.0-15.5); LYMPH # 1.5 x10^3/uL (1.0-4.8); LYMPH % 29 % (24-48); MEAN CORPUSCULAR HEMOGLOBIN 28 pg (25-35); MEAN CORPUSCULAR HGB CONC 34 g/dL (31-37); MEAN CORPUSCULAR VOLUME 83 fL (79-100); MONO # 0.6 x10^3/uL (0.0-1.1); MONO % 12 % (0-9); NEUT # 2.9 x10^3uL (1.8-7.7); NEUT % 54 % (31-73); PLATELET COUNT 287 x10^3/uL (140-400); RED BLOOD COUNT 4.84 x10^6/uL (3.50-5.40); WHITE BLOOD COUNT 5.3 x10^3/uL (4.0-11.0)
--- NOTE | 2017-12-24 02:51 | RAD ---
Chest AP portable at 0211: Reason for examination: Chest pain and dizziness. Comparison is made to previous study dated 04/06/2017. There are postop changes in the sternum. The heart size is normal. Mediastinum is unremarkable. Lung morel are clear. There continues to be some elevation of the right hemidiaphragm which is unchanged. No acute bony abnormalities are seen. Impression: No acute cardiopulmonary disease. Electronically signed by: Kaylie Plascencia MD (12/24/2017 2:48 AM) [facility]
[2017-12-24 03:00] LABS: CALCIUM 9.3 mg/dL (8.5-10.1); CREATININE 0.9 mg/dL (0.6-1.0); GFR 83.5; POTASSIUM 3.5 mmol/L (3.5-5.1)
[2017-12-24 03:07] LABS: ALBUMIN 3.4 g/dL (3.4-5.0); ALBUMIN/GLOBULIN RATIO 0.9 (1.0-1.7); TOTAL BILIRUBIN 0.2 mg/dL (0.2-1.0); TOTAL PROTEIN 7.4 g/dL (6.4-8.2)
[2017-12-24 03:30] VITALS: BP 117/57
--- NOTE | 2017-12-24 05:41 | PHYS DOC ---
Past Medical History Past Medical History: UTI, Other Additional Past Medical Histor: MYASTHANIA GRAVIS, IVIG tx,rituxin Past Surgical History: Other Additional Past Surgical Histo: THYMECTOMY, right fallopian tube Alcohol Use: None Drug Use: None Adult General Chief Complaint Chief Complaint: DIZZY/LIGHT HEADED HPI HPI Patient is a 42 year old female with history of chronic myasthenia gravis requiring IVIG infusions every 3 weeks at [facility] and migraines who presents with generalized weakness, fatigue and dizziness. Patient states she frequently gets migraine headaches following IVIG infusions. States current headache started 3 days ago. Reports nausea with decreased oral intake. No fevers chills, vomiting or sweats. No chest pain, shortness of breath. No abdominal pain. No other acute symptoms or complaints. [] Review of Systems Review of Systems Review symptoms as per history of present illness. All other review symptoms are negative. All other systems were reviewed and found to be within normal limits, except as documented in this note. Allergies Allergies Allergies Coded Allergies Type Severity Reaction Last Updated Verified No Known Drug Allergies 06/30/13 No Physical Exam Physical Exam Constitutional: Well developed, well nourished, no acute distress, non-toxic appearance. [] HENT: Normocephalic, atraumatic, bilateral external ears normal, oropharynx moist, no oral exudates, nose normal. [] Eyes: PERRLA, EOMI, drooping of upper eyelids.. [] Neck: Normal range of motion, no tenderness, supple, no stridor. [] Cardiovascular:Heart rate regular rhythm, no murmur [] Lungs & Thorax: Bilateral breath sounds clear to auscultation [] Abdomen: Bowel sounds normal, soft, no tenderness, no masses, no pulsatile masses. [] Skin: Warm, dry, no erythema, no rash. [] Back: No tenderness, no CVA tenderness. [] Extremities: No tenderness, no cyanosis, no clubbing, ROM intact, no edema. [] Neurologic: Alert and oriented X 3, normal motor function, normal sensory function, no focal deficits noted. [] Psychologic: Affect normal, judgement normal, mood normal. [] Current Patient Data Vital Signs Vital Signs Date Time Temp Pulse Resp B/P (MAP) Pulse Ox O2 Delivery O2 Flow Rate FiO2 12/24/17 03:30 82 99 12/24/17 01:00 99.3 16 131/65 (87) Room Air 99.3 Lab Values Laboratory Tests Test 12/24/17 00:55 12/24/17 02:30 Urine Collection Type Unknown Urine Color Yellow Urine Clarity Clear Urine pH 5.5 Urine Specific [place] <=1.005 Urine Protein Negative mg/dL (NEG-TRACE) Urine Glucose (UA) Negative mg/dL (NEG) Urine Ketones (Stick) Negative mg/dL (NEG) Urine Blood Negative (NEG) Urine Nitrite Negative (NEG) Urine Bilirubin Negative (NEG) Urine Urobilinogen Dipstick 0.2 mg/dL (0.2 mg/dL) Urine Leukocyte Esterase Negative (NEG) Urine RBC Occ /HPF (0-2) Urine WBC Occ /HPF (0-4) Urine Bacteria Few /HPF (0-FEW) Urine Test Negative (NEG) White Blood Count 5.3 x10^3/uL (4.0-11.0) Red Blood Count 4.84 x10^6/uL (3.50-5.40) Hemoglobin 13.7 g/dL (12.0-15.5) Hematocrit 40.2 % (36.0-47.0) Mean Corpuscular Volume 83 fL (79-100) Mean Corpuscular Hemoglobin 28 pg (25-35) Mean Corpuscular Hemoglobin Concent 34 g/dL (31-37) Red Cell Distribution Width 14.0 % (11.5-14.5) Platelet Count 287 x10^3/uL (140-400) Neutrophils (%) (Auto) 54 % (31-73) Lymphocytes (%) (Auto) 29 % (24-48) Monocytes (%) (Auto) 12 % (0-9) H Eosinophils (%) (Auto) 5 % (0-3) H Basophils (%) (Auto) 1 % (0-3) Neutrophils # (Auto) 2.9 x10^3uL (1.8-7.7) Lymphocytes # (Auto) 1.5 x10^3/uL (1.0-4.8) Monocytes # (Auto) 0.6 x10^3/uL (0.0-1.1) Eosinophils # (Auto) 0.2 x10^3/uL (0.0-0.7) Basophils # (Auto) 0.1 x10^3/uL (0.0-0.2) Sodium Level 138 mmol/L (136-145) Potassium Level 3.5 mmol/L (3.5-5.1) Chloride Level 102 mmol/L (98-107) Carbon Dioxide Level 28 mmol/L (21-32) Anion Gap 8 (6-14) Blood Urea Nitrogen 15 mg/dL (7-20) Creatinine 0.9 mg/dL (0.6-1.0) Estimated GFR (Cockcroft-Gault) 83.5 BUN/Creatinine Ratio 17 (6-20) Glucose Level 110 mg/dL (70-99) H Calcium Level 9.3 mg/dL (8.5-10.1) Total Bilirubin 0.2 mg/dL (0.2-1.0) Aspartate Amino Transferase (AST) 12 U/L (15-37) L Alanine Aminotransferase (ALT) 19 U/L (14-59) Alkaline Phosphatase 67 U/L (46-116) Total Protein 7.4 g/dL (6.4-8.2) Albumin 3.4 g/dL (3.4-5.0) Albumin/Globulin Ratio 0.9 (1.0-1.7) L Laboratory Tests 12/24/17 02:30 Laboratory Tests 12/24/17 02:30 EKG EKG [] Radiology/Procedures Radiology/Procedures [] Course & Med Decision Making Course & Med Decision Making Pertinent Labs and Imaging studies reviewed. (See chart for details) [Dizziness likely related to mild dehydration. Symptoms improved to the ED with treatment. Requests discharge home. Return precautions reviewed.] Dragon Disclaimer Dragon Disclaimer This electronic medical record was generated, in whole or in part, using a voice recognition dictation system. Departure Departure Impression: Primary Impression: Dizziness Additional Impression: Migraine Disposition: HOME, SELF-CARE Condition: GOOD Patient Instructions: Dizziness, [id number] Additional Instructions: You were evaluated in the emergency department for dizziness. Lab work and imaging studies were performed and are nondiagnostic. The cause of your symptoms has not been determined. Please go home and rest, increase fluids and take Excedrin Migraine as needed for headache. Follow-up with your PCP early next week if symptoms persist. Return to the ED if new or worsening symptoms. Problem Qualifiers AUSTEN CALVIN DO Dec 24, 2017 05:41
--- NOTE | 2017-12-24 13:06 | EKG ---
[facility] [address] [place] [address] Test Date: 2017-12-24 Test Time: 01:27:46 Pat Name: DAVID GALLARDO Department: Room: Gender: F Bench Mechanic: DANUTA : 1975 Requested By: AUSTEN CALVIN Order Number: [id number] Reading MD: Measurements Intervals [place] Rate: 74 P: 32 WI: 152 QRS: -4 QRSD: 84 T: -2 QT: 424 QTc: 476 Interpretive Statements SINUS RHYTHM LEFTWARD AXIS QRS(T) CONTOUR ABNORMALITY CONSISTENT WITH INFERIOR INFARCT AGE UNDETERMINED ABNORMAL ECG No previous ECG available for comparison
== END 2017-12-24 03:36 | disposition home or self-care (01) ==
LOC: ER 00:53
DX: R42 Dizziness and giddiness (principal); G43.909 Migraine, unspecified, not intractable, without status migrainosus; R53.1 Weakness
CPT/HCPCS: 36415; 71045; 80053; 81001; 81025; 85025; 93005; 99285-25

== ENCOUNTER 2018-02-05 17:14 | Emergency (ER) | payer MEDICARE, OTHER ==
[~2018-02-05] VITALS: Ht 170.2 cm; Wt 120.2 kg
[~2018-02-05 17:14] MED LIST changes: +HYDR-3164 PO; -HYDR-971 PO
[2018-02-05 17:40] VITALS: BP 162/100
[2018-02-05] MEDS ORDERED: LIDOCAINE WITH 8.4% SOD BICARB 3 ML DISP.SYRIN. INJ ONE (18:00)
[2018-02-05] MEDS ORDERED: LIDOCAINE/EPI/TETRACAINE TOPICAL GEL 3 ML. TP ONE (18:00)
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
== END 2018-02-05 19:40 | disposition home or self-care (01) ==
LOC: ER 17:14
DX: S46.222A Laceration of muscle, fascia and tendon of other parts of biceps, left arm, initial encounter (principal); Y04.8XXA Assault by other bodily force, initial encounter; Y93.89 Activity, other specified; Y92.89 Other specified places as the place of occurrence of the external cause; Y99.8 Other external cause status
CPT/HCPCS: 12002; 73060; 99283-25

== ENCOUNTER 2018-02-15 09:11 | Emergency (ER) | payer MEDICARE, OTHER ==
[~2018-02-15] VITALS: Ht 167.6 cm; Wt 99.8 kg
[2018-02-15 09:30] VITALS: BP 148/95
--- NOTE | 2018-02-15 09:36 | PHYS DOC ---
Past Medical History Past Medical History: No Pertinent History Additional Past Medical Histor: MYASTHANIA GRAVIS, IVIG tx,rituxin Past Surgical History: Other Additional Past Surgical Histo: THYMECTOMY, right fallopian tube Alcohol Use: None Drug Use: None Adult General Chief Complaint Chief Complaint: SUTURE/STAPLE REMOVAL HPI HPI 42-year-old female returns to ER for suture removal. Patient had sutures placed 02/05 in this ER. She denies any pain at the laceration site left upper arm. Patient denies any numbness or tingling, swelling in extremities, or fever and chills. She has been using triple antibiotic ointment to laceration site. Review of Systems Review of Systems Constitutional: Denies fever or chills [] Musculoskeletal: Denies joint pain [] Integument: Denies swelling. Reports sutures lt upper/mid arm Neurologic: Denies numbness/tingling All other systems were reviewed and found to be within normal limits, except as documented in this note. Allergies Allergies Allergies Coded Allergies Type Severity Reaction Last Updated Verified No Known Drug Allergies 06/30/13 No Physical Exam Physical Exam Constitutional: Well developed, well nourished, no acute distress, non-toxic appearance. [] Skin: Warm, dry Extremities: No tenderness, no cyanosis, no clubbing, ROM intact, no edema. Lt medial/mid shaft upper arm laceration site with sutures in place- no swelling/ tenderness/drainage or signs of infection. 2+ radial pulse. Neurologic: Alert and oriented X 3, normal motor function, normal sensory function, no focal deficits noted. [] Psychologic: Affect normal, judgement normal, mood normal. [] Current Patient Data Vital Signs Vital Signs Date Time Temp Pulse Resp B/P (MAP) Pulse Ox O2 Delivery O2 Flow Rate FiO2 02/15/18 09:30 98.8 77 16 148/95 (112) 98 Room Air 98.8 EKG EKG [] Radiology/Procedures Radiology/Procedures [] Course & Med Decision Making Course & Med Decision Making She had return to ER for suture removal for sutures she had received in the ER on 02/05/18. Patient had no signs of infection with wound on left upper arm well healing. Sutures were easily removed. Patient was advised on continued monitoring of wound site for signs and symptoms of infection. Patient advised on continued use of triple antibiotic ointment to wound. She was neuro and vascular intact in left upper extremity and in no distress at time of discharge. Education provided on signs and symptoms to return to ER for an discharge instructions were discussed. Dragon Disclaimer Dragon Disclaimer This electronic medical record was generated, in whole or in part, using a voice recognition dictation system. Departure Departure Impression: Primary Impression: Visit for suture removal Disposition: HOME, SELF-CARE Condition: STABLE Referrals: KHAI KELLEY MD (PCP) Patient Instructions: Suture Removal Additional Instructions: Continue home wound care as you have been doing. Monitor skin for signs of infection. Follow-up with primary care physician with any concerns or signs of infection. TAZ GARDNER SALOONKEEPER Feb 15, 2018 09:36
== END 2018-02-15 09:40 | disposition home or self-care (01) ==
LOC: ER 09:11
DX: S41.112D Laceration without foreign body of left upper arm, subsequent encounter (principal); X58.XXXD Exposure to other specified factors, subsequent encounter
CPT/HCPCS: 99281

== ENCOUNTER 2018-03-22 15:01 | Emergency (ER) | payer MEDICARE, OTHER ==
[~2018-03-22] VITALS: Ht 170.2 cm; Wt 120.2 kg
[~2018-03-22 15:01] MED LIST changes: +ALBU2.5V8 IH; +ALBU2.5V8 INH; -PROAIR HFA8.5 GM INH; -PROVENTIL HFA6.7 GM IH
[2018-03-22 15:20] VITALS: BP 142/87
[2018-03-22] MEDS ORDERED: FLUC150T PO (17:22)
[2018-03-22] MEDS ORDERED: CEPH500C PO (17:22)
[2018-03-22] MEDS ORDERED: SULF1TAB24 PO (17:22)
--- NOTE | 2018-03-22 17:23 | PHYS DOC ---
Past Medical History Past Medical History: No Pertinent History Additional Past Medical Histor: MYASTHANIA GRAVIS, IVIG tx,rituxin Past Surgical History: Other Additional Past Surgical Histo: THYMECTOMY, right fallopian tube Alcohol Use: None Drug Use: None Adult General Chief Complaint Chief Complaint: ABSCESS HPI HPI Patient is a 42 year old AA female who presents to the ER with complaints of an abscess in her right axilla for the last 5 days. Pt denies any discharge, redness, or warmth of the site. She states the area is tender and firm. She denies any fever, numbness, tingling, weakness, or dizziness. Pt states she has a history of abscesses in her axillas, but has not had one for several months. Review of Systems Review of Systems Constitutional: Denies fever or chills [] Musculoskeletal: Denies back pain or joint pain [] Integument: See HPI Neurologic: Denies focal weakness or sensory changes [] All other systems were reviewed and found to be within normal limits, except as documented in this note. Allergies Allergies Allergies Coded Allergies Type Severity Reaction Last Updated Verified No Known Drug Allergies 06/30/13 No Physical Exam Physical Exam Constitutional: Well developed, well nourished, no acute distress, non-toxic appearance, obese. [] HENT: Normocephalic, atraumatic, bilateral external ears normal, oropharynx moist, no oral exudates, nose normal. [] Eyes: conjunctiva normal, no discharge. [] Skin: Warm, dry, no erythema, no rash; 1 cm diameter firm, round, tender area noted to R axilla, a small amount of bloody pus was expressed during exam, no surrounding erythema or warmth, no I& D necessary. [] Extremities: No tenderness, no cyanosis, no clubbing, ROM intact, no edema. [] Neurologic: Alert and oriented X 3, normal motor function, normal sensory function, no focal deficits noted. [] Psychologic: Affect normal, judgement normal, mood normal. [] Current Patient Data Vital Signs Vital Signs Date Time Temp Pulse Resp B/P (MAP) Pulse Ox O2 Delivery O2 Flow Rate FiO2 03/22/18 15:20 98.8 76 20 142/87 (105) 95 98.8 EKG EKG [] Radiology/Procedures Radiology/Procedures [] Course & Med Decision Making Course & Med Decision Making Pertinent Labs and Imaging studies reviewed. (See chart for details) [] Dragon Disclaimer Dragon Disclaimer This electronic medical record was generated, in whole or in part, using a voice recognition dictation system. Departure Departure Impression: Primary Impression: Abscess of right axilla Disposition: 01 HOME, SELF-CARE Condition: STABLE Referrals: KHAI KELLEY MD (PCP) Patient Instructions: Abscess, [id number] Additional Instructions: Fill prescriptions and use as directed. Apply warm moist packs to the area to help promote continued drainage. Follow-up with her primary care doctor in the next 1-2 days for recheck. Return to the ER symptoms worsen. Scripts Fluconazole (DIFLUCAN) 150 Mg Tablet 1 TAB PO ONCE, #1 TAB 0 Refills take after finishing antibiotics if signs of yeast infection Prov: SHAVONNE MATT FEATHER BONER 03/22/18 Sulfamethoxazole/Trimethoprim (BACTRIM DS TABLET) 1 Each Tablet 1 TAB PO BID, #14 TAB 0 Refills Prov: SHAVONNE MATT FEATHER BONER 03/22/18 Cephalexin (CEPHALEXIN) 500 Mg Capsule 500 MG PO QID for 7 Days, #28 CAP 0 Refills Prov: SHAVONNE MATT FEATHER BONER 03/22/18 SHAVONNE MATT FEATHER BONER Mar 22, 2018 17:23
== END 2018-03-22 17:35 | disposition home or self-care (01) ==
LOC: ER 15:01
DX: L02.411 Cutaneous abscess of right axilla (principal)
CPT/HCPCS: 99283

== ENCOUNTER 2018-04-08 22:53 | Emergency (ER) | payer MEDICARE, OTHER ==
[~2018-04-08] VITALS: Ht 170.2 cm; Wt 120.2 kg
[~2018-04-08 22:53] MED LIST changes: +CEPH500C PO
[2018-04-08 22:56] VITALS: BP 159/92
--- NOTE | 2018-04-08 23:21 | PHYS DOC ---
Past Medical History Past Medical History: No Pertinent History Additional Past Medical Histor: MYASTHANIA GRAVIS, IVIG tx,rituxin Past Surgical History: Other Additional Past Surgical Histo: THYMECTOMY, right fallopian tube Alcohol Use: None Drug Use: None Adult General Chief Complaint Chief Complaint: ABSCESS [facility] HPI Patient is obese 42 yo female who presents with complaint of abscess in R axilla since beginning of March. Patient has previous hx of abscesses in this axilla before, occasionally requiring I&D. She was seen 03/22/18 at [facility] ED and prescribed Keflex and Bactrim. Patient followed up with her PCP (Stanislav) who recommended that she continue the abx. She completed her abx but still has the pain in her axilla. She is managing the pain with 800 mg ibuprofen and last had a dose this morning. She requested to try another antibiotic and avoid I&D if possible. She rates her pain as 5/10 when the area is being touched. She reports even wearing a bra is causing her pain. She has no associated symptoms and denies chest pain, weakness, fatigue, nausea, vomiting, diarrhea, fevers, or chills. Review of Systems Review of Systems Constitutional: Denies fever or chills [] Eyes: Denies change in visual acuity, redness, or eye pain [] HENT: Denies nasal congestion or sore throat [] Respiratory: Denies cough or shortness of breath [] Cardiovascular: No additional information not addressed in HPI [] GI: Denies abdominal pain, nausea, vomiting, bloody stools or diarrhea [] : Denies dysuria or hematuria [] Musculoskeletal: Denies back pain or joint pain [] Integument: Denies rash or skin lesions [] Neurologic: Denies headache, focal weakness or sensory changes [] Endocrine: Denies polyuria or polydipsia [] All other systems were reviewed and found to be within normal limits, except as documented in this note. Current Medications Current Medications Current Medications Medications (Trade) Dose Ordered Sig/Dex Start Time Stop Time Status Last Admin Dose Admin Clindamycin HCl (Cleocin) 450 mg 1X ONCE 04/09/18 00:00 04/09/18 00:01 Ketorolac Tromethamine (Toradol 30mg Vial) 30 mg 1X ONCE 04/09/18 00:00 04/09/18 00:01 Allergies Allergies Allergies Coded Allergies Type Severity Reaction Last Updated Verified No Known Drug Allergies 06/30/13 No Physical Exam Physical Exam Constitutional: Well developed, well nourished, no acute distress, non-toxic appearance. obese [] HENT: Normocephalic, atraumatic, oropharynx moist, no oral exudates, nose normal. [] Eyes:EOMI, conjunctiva normal, no discharge. [] Neck: Normal range of motion Cardiovascular:Heart rate regular rhythm, no murmur [] Lungs & Thorax: Bilateral breath sounds clear to auscultation [] Abdomen: Bowel sounds normal, soft, no tenderness, no masses, no pulsatile masses. [] Skin: Warm, dry, no erythema, no rash. Palpable 1cm area of consolidation in right axilla. No drainage, no tract identified. No erythema noted. L axilla unremarkable. [] Extremities: No tenderness, no cyanosis, no clubbing, ROM intact, no edema. [] Neurologic: Alert and oriented X 3, normal motor function, normal sensory function, no focal deficits noted. [] Psychologic: Affect normal, judgement normal, mood normal. [] Current Patient Data Vital Signs Vital Signs Date Time Temp Pulse Resp B/P (MAP) Pulse Ox O2 Delivery O2 Flow Rate FiO2 04/08/18 22:56 98.9 86 14 159/92 (114) 98 Room Air 98.9 EKG EKG [] Radiology/Procedures Radiology/Procedures [] Course & Med Decision Making Course & Med Decision Making Patient is obese 42 yo female with recurrent axillary abscesses and myasthenia gravis who presents today with pain in r axilla d/t possible abscess. She was seen in [facility] ED, prescribed keflex and bactrim, and completed the abx without resolution of the abscess. On physical exam the patient is resting comfortably with moderate (5/10) pain in R axilla. There is a small 1cm area of consolidation in right axilla, however there is no fluctuation or drainage from the area. Patient requested to try another abx before I&D. As there was no area of fluctuation requiring drainage, we prescribed patient toradol for pain (x1 IM here in ED) and outpatient course of clindamycin. We discussed with patient that she may have Hidradenitis suppurativa and should follow up with both her PCP and a surgeon to discuss further treatment. Informed patient that if symptoms worsened she should return to ED for evaluation. She voiced understanding and agreement with plan. Kendrick Disclaimer Dragon Disclaimer This electronic medical record was generated, in whole or in part, using a voice recognition dictation system. Departure Departure Impression: Primary Impression: Hidradenitis suppurativa of right axilla Disposition: HOME, SELF-CARE Condition: STABLE Referrals: KHAI KELLEY MD (PCP) RUDDY AVILES MD Patient Instructions: Hidradenitis Suppurativa, Sweat Gland Abscess Scripts Clindamycin Hcl (CLINDAMYCIN HCL) 300 Mg Capsule 1 CAP PO TID for Infection, #30 CAP Prov: TRACI FULLER DO 04/08/18 TRACI FULLER DO Apr 08, 2018 23:21
[2018-04-08] MEDS ORDERED: CLIN300C8 PO (23:46)
[2018-04-09] MEDS ORDERED: CLINDAMYCIN HCL 150 MG CAPSULE. PO ONE
[2018-04-09] MEDS ORDERED: KETOROLAC 30 MG/ML VIAL. IM ONE
== END 2018-04-09 | disposition home or self-care (01) ==
LOC: ER 22:53
DX: L73.2 Hidradenitis suppurativa (principal); L02.411 Cutaneous abscess of right axilla; G70.00 Myasthenia gravis without (acute) exacerbation; E66.9 Obesity, unspecified; Z68.41 Body mass index [BMI] 40.0-44.9, adult
CPT/HCPCS: 96372; 99283; J1885

== ENCOUNTER 2018-04-25 13:33 | Emergency (ER) | payer MEDICARE, OTHER ==
[~2018-04-25] VITALS: Ht 170.2 cm; Wt 120.2 kg
[~2018-04-25 13:33] MED LIST changes: +AMOX875T PO; +CLIN300C8 PO
[2018-04-25] MEDS ORDERED: fentaNYL PF VIAL 100 MCG/2 ML VIAL IV ONE (14:00)
--- NOTE | 2018-04-25 14:26 | EKG ---
[facility] [address] [place] [address] Test Date: 2018-04-25 Test Time: 14:12:35 Pat Name: DAVID GALLARDO Department: Room: Gender: F [employer]: : 1975 Requested By: SHAAN HODGES Order Number: [id number] Reading MD: Jose Blum MD Measurements Intervals [place] Rate: 59 P: 22 DE: 162 QRS: -8 QRSD: 80 T: -4 QT: 452 QTc: 452 Interpretive Statements SINUS RHYTHM PRIOR POSSIBLE INFERIOR INFARCT Electronically Signed On 04-26-2018 9:24:49 [employer] by Jose Blum MD
--- NOTE | 2018-04-25 14:36 | PHYS DOC ---
Past Medical History Past Medical History: Other Additional Past Medical Histor: MYASTHANIA GRAVIS, IVIG tx,rituxin Past Surgical History: Other Additional Past Surgical Histo: THYMECTOMY, right fallopian tube Alcohol Use: None Drug Use: None Adult General Chief Complaint Chief Complaint: HEADACHE HPI HPI Patient is a 42-year-old female who presents to the emergency department for evaluation. She states that she has had a right-sided headache which has been present for the past 2 weeks, and just hasn't felt well. She states she was seen in the emergency department here about a week ago and given antibiotics for possible sinus infection. Imaging was not done according to the patient. The patient states that she has a past history of myasthenia gravis and has been having IVIG infusions regularly, and states that she began experiencing a headache after her last IVIG infusion about 2 weeks ago. She denies any other focal weakness, although she states that sometimes when she doesn't feel she just gets generally weak. She has not had any vision changes, or any numbness. She denies any chest pain or abdominal pain, or new vision changes. There are no alleviating or exacerbating factors to her symptoms. She has taken some Excedrin without improvement in her symptoms. Review of Systems Review of Systems Constitutional: Denies fever or chills [] Eyes: Denies change in visual acuity, redness, or eye pain [] HENT: Denies nasal congestion or sore throat [] Respiratory: Denies cough or shortness of breath [] Cardiovascular: The patient denies any shortness of breath, chest pain, palpitations, or orthopnea [] GI: Denies abdominal pain, nausea, vomiting, bloody stools or diarrhea [] : Denies dysuria or hematuria [] Musculoskeletal: Denies back pain or joint pain [] Integument: Denies rash or skin lesions [] Neurologic: Denies focal weakness or sensory changes [] Endocrine: Denies polyuria or polydipsia [] All other systems were reviewed and found to be within normal limits, except as documented in this note. Current Medications Current Medications Current Medications Medications (Trade) Dose Ordered Sig/Dex Start Time Stop Time Status Last Admin Dose Admin Fentanyl Citrate (Fentanyl 2ml Vial) 50 mcg 1X ONCE 04/25/18 14:00 04/25/18 14:06 DC 04/25/18 15:53 50 MCG Tetracaine HCl (Tetracaine) 1 drop 1X ONCE 04/25/18 15:00 04/25/18 15:01 DC 04/25/18 15:58 1 DROP Allergies Allergies Allergies Coded Allergies Type Severity Reaction Last Updated Verified No Known Drug Allergies 06/30/13 No Physical Exam Physical Exam PHYSICAL EXAM: CONSTITUTIONAL: Well developed, well nourished HEAD: normocephalic, atraumatic EENT: PERRL, there is no obvious photophobia. There is paresis of each eye to medial deviation, consistent with an internuclear ophthalmoplegia. Intraocular pressures are 22 on the left, 21 on the right There are no visual field deficits , conjunctivae normal color, sclerae non-icteric; moist mucous membranes. NECK: Supple, non-tender; no meningismus. LUNGS: Lungs CTA, breathing even and unlabored. Normal air movement. HEART: Regular rate and rhythm, no murmur CHEST: No deformity; non-tender ABDOMEN: The abdomen is soft, and non-tender, no masses or bruits. EXTREM: Normal ROM; no deformity, no calf tenderness. Normal pulses palpable in all extremities. There is no pedal edema. SKIN: No rash; no diaphoresis NEURO: Alert; normal speech and cognition; CN's grossly intact; strength grossly intact without focal deficit. Sensation is grossly normal. BACK: No CVA TTP. Current Patient Data Vital Signs Vital Signs Date Time Temp Pulse Resp B/P (MAP) Pulse Ox O2 Delivery O2 Flow Rate FiO2 04/25/18 15:53 20 04/25/18 13:40 98.7 68 163/114 (130) 98 Room Air 98.7 Lab Values Laboratory Tests Test 04/25/18 14:50 White Blood Count 4.5 x10^3/uL (4.0-11.0) Red Blood Count 4.49 x10^6/uL (3.50-5.40) Hemoglobin 12.7 g/dL (12.0-15.5) Hematocrit 38.1 % (36.0-47.0) Mean Corpuscular Volume 85 fL (79-100) Mean Corpuscular Hemoglobin 28 pg (25-35) Mean Corpuscular Hemoglobin Concent 33 g/dL (31-37) Red Cell Distribution Width 13.5 % (11.5-14.5) Platelet Count 252 x10^3/uL (140-400) Neutrophils (%) (Auto) 46 % (31-73) Lymphocytes (%) (Auto) 33 % (24-48) Monocytes (%) (Auto) 10 % (0-9) H Eosinophils (%) (Auto) 10 % (0-3) H Basophils (%) (Auto) 1 % (0-3) Neutrophils # (Auto) 2.1 x10^3uL (1.8-7.7) Lymphocytes # (Auto) 1.5 x10^3/uL (1.0-4.8) Monocytes # (Auto) 0.4 x10^3/uL (0.0-1.1) Eosinophils # (Auto) 0.4 x10^3/uL (0.0-0.7) Basophils # (Auto) 0.0 x10^3/uL (0.0-0.2) Erythrocyte Sedimentation Rate 14 (0-25) Prothrombin Time 12.9 SEC (11.7-14.0) Prothrombin Time INR 1.0 (0.8-1.1) PTT 29 SEC (24-38) Sodium Level 141 mmol/L (136-145) Potassium Level 3.9 mmol/L (3.5-5.1) Chloride Level 104 mmol/L (98-107) Carbon Dioxide Level 29 mmol/L (21-32) Anion Gap 8 (6-14) Blood Urea Nitrogen 9 mg/dL (7-20) Creatinine 0.8 mg/dL (0.6-1.0) Estimated GFR (Cockcroft-Gault) 95.6 BUN/Creatinine Ratio 11 (6-20) Glucose Level 99 mg/dL (70-99) Calcium Level 9.0 mg/dL (8.5-10.1) Magnesium Level 2.1 mg/dL (1.8-2.4) Total Bilirubin 0.3 mg/dL (0.2-1.0) Aspartate Amino Transferase (AST) 23 U/L (15-37) Alanine Aminotransferase (ALT) 24 U/L (14-59) Alkaline Phosphatase 62 U/L (46-116) C-Reactive Protein, Quantitative 1.5 mg/L (0-3.3) Total Protein 7.3 g/dL (6.4-8.2) Albumin 3.3 g/dL (3.4-5.0) L Albumin/Globulin Ratio 0.8 (1.0-1.7) L Thyroid Stimulating Hormone (TSH) 0.885 uIU/mL (0.358-3.74) Free Thyroxine 0.80 ng/dL (0.76-1.46) Laboratory Tests 04/25/18 14:50 Laboratory Tests 04/25/18 14:50 EKG EKG [Normal sinus rhythm with a normal rate, leftward axis, normal intervals, there are no acute ischemic ST/T changes.] Radiology/Procedures Radiology/Procedures [PROCEDURE: CT HEAD WO CONTRAST CT scan of the head without contrast 04/25/2018 Clinical History: Headaches. Technique: Unenhanced, contiguous, 5 mm axial sections were obtained through the head. One or more of the following individualized dose reduction techniques were utilized for this study: 1. Automated exposure control. 2. Adjustment of the mA and/or kV according to patient size. 3. Use of iterative reconstruction technique. Findings: Comparison study is dated 01/02/2016. The ventricles and sulci are within normal limits in size and configuration. No focal area of abnormal attenuation is seen involving the brain parenchyma. No extra-axial fluid collection is seen. No skull fracture is seen. Impression: Negative study.] Course & Med Decision Making Course & Med Decision Making Pertinent Labs and Imaging studies reviewed. (See chart for details) [2:45 PM: I spoke with the patient's neurologist, Dr. Smyth, at . He tells me that the patient has been complaining of headaches with her IVIG infusions at least as far back as February. 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 States patient is not immunosuppressed for any reason he is aware of.] 4:25 PM: The patient's condition remains stable. Her headache has completely resolved at this time. Given her history of a two-week long headache which was not abrupt in onset, the clinical suspicion for meningitis or subarachnoid hemorrhage is rather low.I discussed doing a lumbar puncture with the patient. We discussed the limitations of CT in definitively ruling out subarachnoid hemorrhage, or ruling out meningitis, I discussed the potential life- threatening nature of these diagnoses. The patient expressed verbal understanding of the risks involved in potentially missing these diagnoses. After considering the risks/benefits of lumbar puncture, and answering all questions about the procedure, the patient declined to undergo a lumbar puncture. The patient was mentally competent, and all questions were addressed. I stressed the need to return to the emergency department for worsening symptoms, or if the patient is willing to undergo further evaluation. The patient expressed verbal understanding. I spoke with the patient's neurologist states he does not typically do headache evaluation and recommended referring the patient to another neurologist, and this will be done. I also stressed importance of establishing care with a clay press operator, due to the patient's mildly elevated measured pressures today, although I'm doubtful that this is an acute problem contributing to the patient' s symptoms. Return precautions were discussed in detail. Dragon Disclaimer Dragon Disclaimer This electronic medical record was generated, in whole or in part, using a voice recognition dictation system. Departure Departure Impression: Primary Impression: Headache Additional Impression: Myasthenia gravis Disposition: 01 HOME, SELF-CARE Condition: STABLE Referrals: KHAI KELLEY MD (PCP) GHADA BATES MD, GURINDER MD Patient Instructions: General Headache Without Cause, Glaucoma Problem Qualifiers SHAAN HODGES MD Apr 25, 2018 14:36
--- NOTE | 2018-04-25 14:51 | RAD ---
CT scan of the head without contrast 04/25/2018 Clinical History: Headaches. Technique: Unenhanced, contiguous, 5 mm axial sections were obtained through the head. One or more of the following individualized dose reduction techniques were utilized for this study: 1. Automated exposure control. 2. Adjustment of the mA and/or kV according to patient size. 3. Use of iterative reconstruction technique. Findings: Comparison study is dated 01/02/2016. The ventricles and sulci are within normal limits in size and configuration. No focal area of abnormal attenuation is seen involving the brain parenchyma. No extra-axial fluid collection is seen. No skull fracture is seen. Impression: Negative study. Electronically signed by: Zhou Guevara MD (04/25/2018 2:46 PM) [id number]
[2018-04-25] MEDS ORDERED: TETRACAINE 0.5% OPHTH SOLUTION 4ML BOTTLE. OU ONE (15:00)
[2018-04-25 15:08] LABS: BASO % 1 % (0-3); EOS # 0.4 x10^3/uL (0.0-0.7); EOS % 10 % (0-3); HEMATOCRIT 38.1 % (36.0-47.0); HEMOGLOBIN 12.7 g/dL (12.0-15.5); LYMPH # 1.5 x10^3/uL (1.0-4.8); LYMPH % 33 % (24-48); MEAN CORPUSCULAR HEMOGLOBIN 28 pg (25-35); MEAN CORPUSCULAR HGB CONC 33 g/dL (31-37); MEAN CORPUSCULAR VOLUME 85 fL (79-100); MONO # 0.4 x10^3/uL (0.0-1.1); MONO % 10 % (0-9); NEUT # 2.1 x10^3uL (1.8-7.7); NEUT % 46 % (31-73); PLATELET COUNT 252 x10^3/uL (140-400); RED BLOOD COUNT 4.49 x10^6/uL (3.50-5.40); RED CELL DISTRIBUTION WIDTH 13.5 % (11.5-14.5); WHITE BLOOD COUNT 4.5 x10^3/uL (4.0-11.0)
[2018-04-25 15:19] LABS: PROTHROMBIN TIME PATIENT 12.9 SEC (11.7-14.0)
[2018-04-25 15:20] LABS: CREATININE 0.8 mg/dL (0.6-1.0); GFR 95.6; POTASSIUM 3.9 mmol/L (3.5-5.1)
[2018-04-25 15:27] LABS: ALBUMIN 3.3 g/dL (3.4-5.0); ALBUMIN/GLOBULIN RATIO 0.8 (1.0-1.7); C-REACTIVE PROTEIN 1.5 mg/L (0-3.3); MAGNESIUM 2.1 mg/dL (1.8-2.4); TOTAL BILIRUBIN 0.3 mg/dL (0.2-1.0); TOTAL PROTEIN 7.3 g/dL (6.4-8.2)
[2018-04-25 15:35] LABS: FREE T4 0.8 ng/dL (0.76-1.46); THYROID STIM HORMONE (TSH) 0.885 uIU/mL (0.358-3.74)
[2018-04-25 16:25] VITALS: BP 144/91
== END 2018-04-25 16:43 | disposition home or self-care (01) ==
LOC: ER 13:33
DX: R51 Headache (principal); G70.00 Myasthenia gravis without (acute) exacerbation
CPT/HCPCS: 36415; 70450; 80053; 83735; 84439; 84443; 85025; 85610; 85651; 85730; 86140; 93005; 96374; 99284; J3010

== ENCOUNTER 2018-05-05 17:22 | Emergency (ER) | payer MEDICARE, OTHER ==
[~2018-05-05] VITALS: Ht 170.2 cm; Wt 120.2 kg
[2018-05-05 18:00] VITALS: BP 214/166
[2018-05-05] MEDS ORDERED: KETOROLAC 60 MG/2 ML VIAL. IM ONE (18:00)
--- NOTE | 2018-05-05 19:02 | PHYS DOC ---
Past Medical History Past Medical History: Other Additional Past Medical Histor: MYASTHANIA GRAVIS, IVIG tx,rituxin Past Surgical History: Other Additional Past Surgical Histo: THYMECTOMY, right fallopian tube Alcohol Use: None Drug Use: None Adult General Chief Complaint Chief Complaint: FACE PROBLEM [facility] HPI Patient is a 42 year old [f__sex] who presents with [] Review of Systems Review of Systems Constitutional: Denies fever or chills [] Eyes: Denies change in visual acuity, redness, or eye pain [] HENT: See history of present illness Respiratory: Denies cough or shortness of breath [] Cardiovascular: No additional information not addressed in HPI [] Neurologic: Denies headache, focal weakness or sensory changes [] Endocrine: Denies polyuria or polydipsia [] All other systems were reviewed and found to be within normal limits, except as documented in this note. Current Medications Current Medications Current Medications Medications (Trade) Dose Ordered Sig/Dex Start Time Stop Time Status Last Admin Dose Admin Ketorolac Tromethamine (Toradol Im) 60 mg 1X ONCE 05/05/18 18:00 05/05/18 18:01 DC 05/05/18 18:37 60 MG Allergies Allergies Allergies Coded Allergies Type Severity Reaction Last Updated Verified No Known Drug Allergies 06/30/13 No Physical Exam Physical Exam Constitutional: Well developed, well nourished, no acute distress, non-toxic appearance. [] HENT: Normocephalic, atraumatic, bilateral external ears normal, oropharynx moist, no oral exudates, nose normal. [] Eyes: PERRLA, EOMI, conjunctiva normal, no discharge. [] Neck: Normal range of motion, no tenderness, supple, no stridor. [] Cardiovascular:Heart rate regular rhythm, no murmur [] Lungs & Thorax: Bilateral breath sounds clear to auscultation [] Neurologic: Alert and oriented X 3, normal motor function, normal sensory function, no focal deficits noted. [] Psychologic: Affect normal, judgement normal, mood normal. [] Current Patient Data Vital Signs Vital Signs Date Time Temp Pulse Resp B/P (MAP) Pulse Ox O2 Delivery O2 Flow Rate FiO2 05/05/18 18:00 99.3 101 18 214/166 (182) 97 Room Air 99.3 Lab Values Laboratory Tests Test 2/16/19 18:09 POC Urine HCG, Qualitative Hcg negative (Negative) EKG EKG [] Radiology/Procedures Radiology/Procedures [] Course & Med Decision Making Course & Med Decision Making Pertinent Labs and Imaging studies reviewed. (See chart for details) []The patient was here. Recently with a CT scan that was negative. The provider at that visit had follow-up conversations with her neurologist who suggested that she follow-up with a specialist. The patient is requesting pain medication. She has requested pain medication numerous times since she got here. She states that she was given IV pain medication and she wants that repeated. I did agree to give her an injection of Toradol in the emergency department. She is to follow-up with her specialist as scheduled. Dragon Disclaimer Dragon Disclaimer This electronic medical record was generated, in whole or in part, using a voice recognition dictation system. Departure Departure Impression: Primary Impression: Pain Disposition: 01 HOME, SELF-CARE Condition: STABLE Referrals: KHAI KELLEY MD (PCP) Patient Instructions: Chronic Pain Additional Instructions: Follow-up with your primary care provider for further evaluation of this pain. It might be beneficial see a dentist. You may take ibuprofen or Tylenol at home for pain. MARICHUY CLEMENS APRN May 05, 2018 19:02
== END 2018-05-05 19:04 | disposition home or self-care (01) ==
LOC: ER 17:22
DX: R51 Headache (principal)
CPT/HCPCS: 81025; 96372; 99283; J1885; 99284

== ENCOUNTER 2018-05-23 01:24 | Emergency (ER) | payer MEDICARE ==
[~2018-05-23] VITALS: Ht 170.2 cm; Wt 120.2 kg
[~2018-05-23 01:24] MED LIST changes: +RANI-376 PO; -RANI150T21 PO
[2018-05-23 02:03] LABS: BILIRUBIN,URINE NEGATIVE (NEG); CLARITY,URINE CLEAR; COLOR,URINE YELLOW; NITRITE,URINE NEGATIVE (NEG); PH,URINE 5.5; PROTEIN,URINE NEGATIVE (NEG-TRACE); UROBILINOGEN,URINE 0.2 mg/dL (0.2 mg/dL)
[2018-05-23 02:57] LABS: BACTERIA,URINE 0 /HPF (0-FEW); SQUAMOUS EPITHELIAL CELL,UR MOD /LPF
[2018-05-23] MEDS ORDERED: CEPH-264 PO (03:05)
--- NOTE | 2018-05-23 03:05 | PHYS DOC ---
Past Medical History Past Medical History: Other Additional Past Medical Histor: MYASTHANIA GRAVIS, IVIG tx,rituxin Past Surgical History: Other Additional Past Surgical Histo: THYMECTOMY, right fallopian tube Additional Information: Nonsmoker Alcohol Use: Rarely Drug Use: None Adult General Chief Complaint Chief Complaint: ABDOMINAL PAIN HPI HPI 43 y/o female presents with report of lower abdominal and back pain which started yesterday. Reports history of frequent UTIs. Reports this feels similar. Denies fever/chills. Denies trauma. Denies N/V/D. Review of Systems Review of Systems Constitutional: Denies fever or chills [] Eyes: Denies change in visual acuity, redness, or eye pain [] HENT: Denies nasal congestion or sore throat [] Respiratory: Denies cough or shortness of breath [] Cardiovascular: Denies chest pain or palpitations GI: Reports lower abdominal pain; denies nausea, vomiting, or diarrhea [] : Reports dysuria; denies hematuria [] Musculoskeletal: Reports low back pain; denies trauma to limbs Integument: Denies rash or skin lesions [] Neurologic: Denies headache, focal weakness or sensory changes [] Complete systems were reviewed and found to be within normal limits, except as documented in this note. Allergies Allergies Allergies Coded Allergies Type Severity Reaction Last Updated Verified No Known Drug Allergies 06/30/13 No Physical Exam Physical Exam Constitutional: Well developed, well nourished, no acute distress, non-toxic appearance. [] HENT: Normocephalic, atraumatic, oropharynx moist Eyes: Conjunctiva normal, no discharge. [] Neck: Normal range of motion, no tenderness, supple Cardiovascular: Heart rate regular rhythm, no murmur [] Lungs & Thorax: Bilateral breath sounds clear to auscultation [] Abdomen: Soft, no tenderness Skin: Warm, dry, no erythema, no rash. [] Back: No tenderness, no CVA tenderness. [] Extremities: No tenderness, ROM intact, no edema. [] Neurologic: Alert and oriented X 3, normal motor function, normal sensory function, no focal deficits noted. [] Psychologic: Affect normal, judgement normal, mood normal. [] Current Patient Data Vital Signs Vital Signs Date Time Temp Pulse Resp B/P (MAP) Pulse Ox O2 Delivery O2 Flow Rate FiO2 05/23/18 03:30 86 18 138/88 (105) 98 Room Air 05/23/18 01:30 97.9 97.9 Lab Values Laboratory Tests Test 05/23/18 01:32 Urine Collection Type Void Urine Color Yellow Urine Clarity Clear Urine pH 5.5 Urine Specific [place] 1.020 Urine Protein Negative mg/dL (NEG-TRACE) Urine Glucose (UA) Negative mg/dL (NEG) Urine Ketones (Stick) Negative mg/dL (NEG) Urine Blood Negative (NEG) Urine Nitrite Negative (NEG) Urine Bilirubin Negative (NEG) Urine Urobilinogen Dipstick 0.2 mg/dL (0.2 mg/dL) Urine Leukocyte Esterase Negative (NEG) Urine RBC 1-2 /HPF (0-2) Urine WBC 5-10 /HPF (0-4) Urine Squamous Epithelial Cells Mod /LPF Urine Bacteria 0 /HPF (0-FEW) Microbiology 05/23/18 Urine Culture - Final, Complete 05/23/18 Urine Culture Result 1 (BHARGAVI) - Final, Complete EKG EKG [] Radiology/Procedures Radiology/Procedures [] Course & Med Decision Making Course & Med Decision Making Pertinent Labs reviewed. (See chart for details) Patient presents with report of dysuria with lower abdominal discomfort with associated low back pain. Reports similar to prior episodes of UTIs for which patient reports are frequent. Abdomen non-peritoneal. NO CVA tenderness noted. NO signs of trauma. UA with signs of infection vs contamination. Given frequency and history will empirically treat. Patient stable for discharge with outpatient follow-up with PCP. Discussed findings and plan with patient, who acknowledge understanding and agreement. Dragon Disclaimer Dragon Disclaimer This electronic medical record was generated, in whole or in part, using a voice recognition dictation system. Departure Departure Impression: Primary Impression: Dysuria Disposition: HOME, SELF-CARE Condition: STABLE Referrals: KHAI KELLEY MD (PCP) Patient Instructions: Dysuria-Brief Scripts Cephalexin (KEFLEX) 500 Mg Capsule 500 MG PO TID for 7 Days, #21 CAP Prov: TRACI FULLER DO 05/23/18 TRACI FULLER DO May 23, 2018 03:05
[2018-05-23 03:30] VITALS: BP 138/88
== END 2018-05-23 03:35 | disposition home or self-care (01) ==
LOC: ER 01:24
DX: R30.0 Dysuria (principal); R10.30 Lower abdominal pain, unspecified; M54.5 Low back pain; Z87.440 Personal history of urinary (tract) infections
CPT/HCPCS: 81001; 87086; 99283

== ENCOUNTER 2018-05-30 03:09 | Emergency (ER) | payer MEDICARE, OTHER ==
[~2018-05-30] VITALS: Ht 170.2 cm; Wt 120.2 kg
[2018-05-30 04:30] VITALS: BP 127/69
--- NOTE | 2018-05-30 04:30 | PHYS DOC ---
Past Medical History Past Medical History: Other Additional Past Medical Histor: MYASTHANIA GRAVIS, IVIG tx,rituxin Past Surgical History: Other Additional Past Surgical Histo: THYMECTOMY, right fallopian tube Alcohol Use: Rarely Drug Use: None Adult General Chief Complaint Chief Complaint: DIZZY/LIGHT HEADED HPI HPI 43-year-old female past medical history hypertension presents for evaluation due to concern of her blood pressure. Patient states she recently saw her primary care physician regarding her blood pressure. She was currently on lisinopril and her dosage was adjusted. Primary care physician recommended Patient document her blood pressures. This afternoon 1500HRS patient took her blood pressure at [facility] and it was 111/57. She discussed her blood pressure with the pharmacist who told her her diastolic pressure of 57 was too low. Patient states she presents to the emergency department this evening because she is concerned about that blood pressure reading. Current blood pressure is 118/76. Patient also complaints of dizziness. Patient states she has dizziness when going to sleep and upon awakening. No exacerbating factors. She denies any nausea vomiting blurry vision or double vision. Patient also states she has ringing in her left ear. Patient ambulated into the ER with a normal steady gait. She drove herself. Patient in no acute distress. Review of Systems Review of Systems Constitutional: Denies fever or chills [] Eyes: Denies change in visual acuity, redness, or eye pain [] HENT: Denies nasal congestion or sore throat [] Respiratory: Denies cough or shortness of breath [] Cardiovascular: No additional information not addressed in HPI [] GI: Denies abdominal pain, nausea, vomiting, bloody stools or diarrhea [] : Denies dysuria or hematuria [] Musculoskeletal: Denies back pain or joint pain [] Integument: Denies rash or skin lesions [] Neurologic: Denies headache, focal weakness or sensory changes [] Endocrine: Denies polyuria or polydipsia [] All other systems were reviewed and found to be within normal limits, except as documented in this note. Allergies Allergies Allergies Coded Allergies Type Severity Reaction Last Updated Verified No Known Drug Allergies 06/30/13 No Physical Exam Physical Exam Constitutional: Well developed, well nourished, no acute distress, non-toxic appearance. [] HENT: Normocephalic, atraumatic, bilateral external ears normal, oropharynx moist, no oral exudates, nose normal. [] Eyes: PERRLA, EOMI, conjunctiva normal, no discharge. [] Neck: Normal range of motion, no tenderness, supple, no stridor. [] Cardiovascular:Heart rate regular rhythm, no murmur [] Lungs & Thorax: Bilateral breath sounds clear to auscultation [] Abdomen: Bowel sounds normal, soft, no tenderness, no masses, no pulsatile masses. [] Skin: Warm, dry, no erythema, no rash. [] Back: No tenderness, no CVA tenderness. [] Extremities: No tenderness, no cyanosis, no clubbing, ROM intact, no edema. [] Neurologic: Alert and oriented X 3, normal motor function, normal sensory function, no focal deficits noted. [] Psychologic: Affect normal, judgement normal, mood normal. [] Current Patient Data Vital Signs Vital Signs Date Time Temp Pulse Resp B/P (MAP) Pulse Ox O2 Delivery O2 Flow Rate FiO2 05/30/18 03:10 98.6 78 18 123/88 (100) 97 Room Air 98.6 EKG EKG [] Radiology/Procedures Radiology/Procedures [] Course & Med Decision Making Course & Med Decision Making Pertinent Labs and Imaging studies reviewed. (See chart for details) [] Dragon Disclaimer Dragon Disclaimer This electronic medical record was generated, in whole or in part, using a voice recognition dictation system. Departure Departure Impression: Primary Impression: Hypertension Additional Impression: Dizziness Disposition: 01 HOME, SELF-CARE Condition: STABLE Referrals: KHAI KELLEY MD (PCP) Problem Qualifiers Primary Impression: Hypertension Hypertension type: unspecified Qualified Codes: I10 - Essential (primary) hypertension SHANTA HERRERA DO May 30, 2018 04:30
== END 2018-05-30 05:00 | disposition home or self-care (01) ==
LOC: ER 03:09
DX: I10 Essential (primary) hypertension (principal); R42 Dizziness and giddiness
CPT/HCPCS: 99283

== ENCOUNTER 2018-07-01 17:30 | Emergency (ER) | payer MEDICARE, OTHER ==
[~2018-07-01] VITALS: Ht 170.2 cm; Wt 120.2 kg
[2018-07-01 17:30] VITALS: BP 146/102
--- NOTE | 2018-07-01 17:40 | PHYS DOC ---
Past Medical History Past Medical History: Other Additional Past Medical Histor: MYASTHANIA GRAVIS, IVIG tx,rituxin Past Surgical History: Other Additional Past Surgical Histo: THYMECTOMY, right fallopian tube Alcohol Use: Rarely Drug Use: None Adult General Chief Complaint Chief Complaint: EARACHE/EAR PAIN HPI HPI Patient is a 43 year old female who presents with tenderness to the right ear with decreased hearing in both ears. The patient states that she has a history of cerumen impaction. She states that her ear began hurting her 2 days ago. She has tried [id number] with little relief. Review of Systems Review of Systems Constitutional: Denies fever or chills [] Eyes: Denies change in visual acuity, redness, or eye pain [] HENT: See history of present illness Respiratory: Denies cough or shortness of breath [] Cardiovascular: No additional information not addressed in HPI [] Neurologic: Denies headache, focal weakness or sensory changes [] Endocrine: Denies polyuria or polydipsia [] All other systems were reviewed and found to be within normal limits, except as documented in this note. Allergies Allergies Allergies Coded Allergies Type Severity Reaction Last Updated Verified No Known Drug Allergies 06/30/13 No Physical Exam Physical Exam Constitutional: Well developed, well nourished, no acute distress, non-toxic appearance. [] HENT: Normocephalic, atraumatic, bilateral cerumen impaction noted, oropharynx moist, no oral exudates, nose normal. [] Eyes: PERRLA, EOMI, conjunctiva normal, no discharge. [] Neck: Normal range of motion, no tenderness, supple, no stridor. [] Cardiovascular:Heart rate regular rhythm, no murmur [] Lungs & Thorax: Bilateral breath sounds clear to auscultation [] Neurologic: Alert and oriented X 3, normal motor function, normal sensory function, no focal deficits noted. [] Psychologic: Affect normal, judgement normal, mood normal. [] Current Patient Data Vital Signs Vital Signs Date Time Temp Pulse Resp B/P (MAP) Pulse Ox O2 Delivery O2 Flow Rate FiO2 07/01/18 17:30 98.5 88 15 146/102 (117) 97 Room Air 98.5 EKG EKG [] Radiology/Procedures Radiology/Procedures [] Course & Med Decision Making Course & Med Decision Making Pertinent Labs and Imaging studies reviewed. (See chart for details) [] Dragon Disclaimer Dragon Disclaimer This electronic medical record was generated, in whole or in part, using a voice recognition dictation system. Departure Departure Impression: Primary Impression: Otitis media Additional Impression: Cerumen impaction Disposition: 01 HOME, SELF-CARE Condition: STABLE Referrals: KHAI KELLEY MD (PCP) Patient Instructions: Cerumen Impaction, Otitis Media, Adult Additional Instructions: Take the antibiotic as directed. Follow-up with your primary care provider in 4 days if not improving or return to the emergency department if worsening. Scripts Amoxicillin (AMOXICILLIN) 875 Mg Tablet 1 TAB PO BID for otitis media, #20 TAB Prov: MARICHUY CLEMENS APRN 07/01/18 Problem Qualifiers MARICHUY CLEMENS APRN Jul 01, 2018 17:40
[2018-07-01] MEDS ORDERED: AMOX875T PO (18:12)
== END 2018-07-01 18:30 | disposition home or self-care (01) ==
LOC: ER 17:30
DX: H61.23 Impacted cerumen, bilateral (principal); H66.93 Otitis media, unspecified, bilateral
CPT/HCPCS: 69209; 99283

== ENCOUNTER 2018-07-03 22:54 | Emergency (ER) | payer MEDICARE, OTHER ==
[~2018-07-03] VITALS: Ht 170.2 cm; Wt 120.2 kg
[2018-07-03 22:57] VITALS: BP 146/102
[2018-07-03] MEDS ORDERED: METH4TAB2 PO (23:25)
--- NOTE | 2018-07-03 23:26 | PHYS DOC ---
Past Medical History Past Medical History: Other Additional Past Medical Histor: MYASTHANIA GRAVIS, IVIG tx,rituxin Past Surgical History: Other Additional Past Surgical Histo: THYMECTOMY, right fallopian tube Alcohol Use: Rarely Drug Use: None Adult General Chief Complaint Chief Complaint: EARACHE/EAR PAIN [facility] HPI Patient is a 43-year-old female who presents with complaint of right ear congestion, stating that it feels completely stopped up and she is having difficulty with hearing. She states that she was here a few days ago and was placed on antibiotics for an ear infection. She states that she has no ear pain at this time but she just states that it feels very congested and having difficulty hearing out of it. Review of Systems Review of Systems Constitutional: Denies fever or chills [] HENT: Admits to nasal congestion without sore throat [] Respiratory: Denies cough or shortness of breath [] Cardiovascular: No additional information not addressed in HPI [] Allergies Allergies Allergies Coded Allergies Type Severity Reaction Last Updated Verified No Known Drug Allergies 06/30/13 No Physical Exam Physical Exam Constitutional: Well developed, well nourished, no acute distress, non-toxic appearance. [] HENT: Normocephalic, atraumatic, bilateral external ears normal, right TM is dull, white and retracted. [] Eyes: PERRLA, EOMI, conjunctiva normal, no discharge. [] Neck: Normal range of motion, no tenderness, supple, no stridor. [] Cardiovascular:Heart rate regular rhythm, no murmur [] Lungs & Thorax: Bilateral breath sounds clear to auscultation [] Current Patient Data Vital Signs Vital Signs Date Time Temp Pulse Resp B/P (MAP) Pulse Ox O2 Delivery O2 Flow Rate FiO2 07/03/18 22:57 98.6 87 16 146/102 (117) 98 Room Air 98.6 EKG EKG [] Radiology/Procedures Radiology/Procedures [] Course & Med Decision Making Course & Med Decision Making Pertinent Labs and Imaging studies reviewed. (See chart for details) [] Dragon Disclaimer Dragon Disclaimer This electronic medical record was generated, in whole or in part, using a voice recognition dictation system. Departure Departure Impression: Primary Impression: Eustachian tube dysfunction Disposition: 01 HOME, SELF-CARE Condition: STABLE Referrals: KHAI KELLEY MD (PCP) Patient Instructions: Otitis Media, Adult Scripts Methylprednisolone (MEDROL) 4 Mg Tab.ds.pk 1 PKG PO UD, #1 PKG Prov: TEE HICKS Jr. DO 07/03/18 Problem Qualifiers Primary Impression: Eustachian tube dysfunction Laterality: right Qualified Codes: H69.81 - Other specified disorders of eustachian tube, right ear TEE HICKS Jr. DO Jul 03, 2018 23:26
[2018-07-03] MEDS ORDERED: predniSONE 20 MG TABLET PO ONE (23:45)
== END 2018-07-03 23:49 | disposition home or self-care (01) ==
LOC: ER 22:54
DX: H69.81 Other specified disorders of Eustachian tube, right ear (principal); R09.81 Nasal congestion
CPT/HCPCS: 99283; J7512

== ENCOUNTER 2018-07-07 05:31 | Emergency (ER) | payer MEDICARE, OTHER ==
[~2018-07-07] VITALS: Ht 170.2 cm; Wt 122.5 kg
[~2018-07-07 05:31] MED LIST changes: +METH4TAB2 PO
[2018-07-07 05:45] VITALS: BP 161/110
--- NOTE | 2018-07-07 06:10 | PHYS DOC ---
Past Medical History Past Medical History: Other Additional Past Medical Histor: MYASTHANIA GRAVIS, IVIG tx,rituxin Past Surgical History: Other Additional Past Surgical Histo: THYMECTOMY, right fallopian tube Additional Information: Nonsmoker Alcohol Use: Rarely Drug Use: None Adult General Chief Complaint Chief Complaint: EARACHE/EAR PAIN HPI HPI 43 y/o female presents with 1 week history of difficulty with right ear. Patient previously seen in ED for pain to right ear and diagnosed with otitis media. Patient was started on antibiotics and steroids. Reports compliance with these medicines. Reports pain has since resolved but patient still has "muffled hearing" out of the ear. Denies fever/chills. Denies trauma. Review of Systems Review of Systems Constitutional: Denies fever or chills Eyes: Denies redness or eye pain HENT: Denies nasal congestion or sore throat; reports earache and muffled hearing to right ear Respiratory: Denies cough or shortness of breath Cardiovascular: Denies chest pain or palpitations GI: Denies abdominal pain, nausea, or vomiting : Denies dysuria or hematuria Musculoskeletal: Denies back pain or joint pain Integument: Denies rash or skin lesions Neurologic: Denies headache, focal weakness or sensory changes Complete systems were reviewed and found to be within normal limits, except as documented in this note. Allergies Allergies Allergies Coded Allergies Type Severity Reaction Last Updated Verified No Known Drug Allergies 06/30/13 No Physical Exam Physical Exam Constitutional: Well developed, well nourished, no acute distress, non-toxic appearance HENT: Normocephalic, atraumatic, oropharynx moist, right TM with perforation Eyes: Conjunctiva normal, no discharge Neck: Normal range of motion, no tenderness, supple Cardiovascular: Heart rate normal, regular rhythm Lungs & Thorax: Bilateral breath sounds clear to auscultation, no wheezing Skin: Warm, dry, no erythema, no rash Extremities: No tenderness, ROM intact, no edema Neurologic: Alert and oriented X 3, no focal deficits noted Psychologic: Affect normal, judgement normal, mood normal Current Patient Data Vital Signs Vital Signs Date Time Temp Pulse Resp B/P (MAP) Pulse Ox O2 Delivery O2 Flow Rate FiO2 07/07/18 05:45 98.1 85 18 161/110 (127) 96 Room Air 98.1 EKG EKG [] Radiology/Procedures Radiology/Procedures [] Course & Med Decision Making Course & Med Decision Making Patient presents with report of recent diagnosis of otitis media for which she is currently being treated with amoxicillin. Patient reports muffled hearing with some earache. Physical exam consistent for perforated eardrum. Patient stable for discharge with outpatient follow-up with PCP/ENT. ENT referral provided. Discussed findings and plan with patient, who acknowledges understanding and agreement. Dragon Disclaimer Dragon Disclaimer This electronic medical record was generated, in whole or in part, using a voice recognition dictation system. Departure Departure Impression: Primary Impression: Otalgia of right ear Additional Impression: Perforated eardrum Disposition: HOME, SELF-CARE Condition: STABLE Referrals: KHAI KELLEY MD (PCP) Patient Instructions: Eardrum Perforation, [id number], Otalgia-Brief Additional Instructions: Discontinue use of ear drops. Continue taking your oral steroids and antibiotics Problem Qualifiers Additional Impression: Perforated eardrum Laterality: right Qualified Codes: H72.91 - Unspecified perforation of tympanic membrane, right ear TRACI FULLER DO Jul 07, 2018 06:10
== END 2018-07-07 06:20 | disposition home or self-care (01) ==
LOC: ER 05:31
DX: H72.91 Unspecified perforation of tympanic membrane, right ear (principal)
CPT/HCPCS: 99281

== ENCOUNTER 2018-09-06 01:51 | Emergency (ER) | payer MEDICARE, OTHER ==
[~2018-09-06] VITALS: Ht 170.2 cm; Wt 122.5 kg
[2018-09-06 02:36] VITALS: BP 138/93
[2018-09-06 03:00] LABS: BILIRUBIN,URINE NEGATIVE (NEG); CLARITY,URINE CLEAR; COLOR,URINE YELLOW; NITRITE,URINE NEGATIVE (NEG); PROTEIN,URINE NEGATIVE (NEG-TRACE); UROBILINOGEN,URINE 0.2 mg/dL (0.2 mg/dL)
[2018-09-06 03:05] LABS: BACTERIA,URINE FEW /HPF (0-FEW); RBC,URINE 0 /HPF (0-2); SQUAMOUS EPITHELIAL CELL,UR MOD /LPF
--- NOTE | 2018-09-06 03:17 | PHYS DOC ---
Past Medical History Past Medical History: Other Additional Past Medical Histor: MYASTHANIA GRAVIS, IVIG tx,rituxin Past Surgical History: Other Additional Past Surgical Histo: THYMECTOMY, right fallopian tube, MULTIPLE SKIN GRAFTS Alcohol Use: Occasionally Drug Use: None Adult General Chief Complaint Chief Complaint: ABDOMINAL PAIN HPI HPI Patient is a 43 year old female who presents the ER concerned that she has a urinary tract infection. Patient reports history of recurrent UTIs. Patient states that she's had some very mild suprapubic cramping for the past one day similar to previous urinary tract infections. Denies any dysuria. Has not taken anything else [id number] for pain. Pain is crampy, intermittent, one to 2 out of 10. No dysuria, no flank pain, no fever, no vaginal discharge, denies any concerns for STDs. Review of Systems Review of Systems Constitutional: Denies fever or chills [] Eyes: Denies change in visual acuity, redness, or eye pain [] HENT: Denies nasal congestion or sore throat [] Respiratory: Denies cough or shortness of breath [] Cardiovascular: No chest pain, no palpitations, no LE edema GI: +abdominal pain, nausea, vomiting, bloody stools or diarrhea [] : Denies dysuria or hematuria [] Musculoskeletal: Denies back pain or joint pain [] Integument: Denies rash or skin lesions [] Neurologic: Denies headache, focal weakness or sensory changes [] Endocrine: Denies polyuria or polydipsia [] All other systems were reviewed and found to be within normal limits, except as documented in this note. Allergies Allergies Allergies Coded Allergies Type Severity Reaction Last Updated Verified No Known Drug Allergies 06/30/13 No Physical Exam Physical Exam Constitutional: Obese, no acute distress, non-toxic appearance. [] HENT: Normocephalic, atraumatic, Eyes: PERRLA, EOMI, Neck: Normal range of motion, , no stridor. [] Cardiovascular:Heart rate regular rhythm, no murmur [] Lungs & Thorax: Bilateral breath sounds clear to auscultation [] Abdomen: Bowel sounds normal, soft, no guarding, no rebound tenderness, no tenderness, no masses, no pulsatile masses. [] Skin: Warm, dry, no erythema, no rash. [] Extremities: ROM intact, no edema. [] Neurologic: Alert and oriented X 3, no focal deficits noted. [] Psychologic: Affect normal, judgement normal, mood normal. [] Current Patient Data Vital Signs Vital Signs Date Time Temp Pulse Resp B/P (MAP) Pulse Ox O2 Delivery O2 Flow Rate FiO2 09/06/18 02:29 98.0 75 20 138/93 (108) 96 Room Air 98.0 Lab Values Laboratory Tests Test 09/06/18 02:05 09/06/18 02:07 Urine Collection Type Unknown Urine Color Yellow Urine Clarity Clear Urine pH 5.0 Urine Specific Mccall >=1.030 Urine Protein Negative mg/dL (NEG-TRACE) Urine Glucose (UA) Negative mg/dL (NEG) Urine Ketones (Stick) Negative mg/dL (NEG) Urine Blood Negative (NEG) Urine Nitrite Negative (NEG) Urine Bilirubin Negative (NEG) Urine Urobilinogen Dipstick 0.2 mg/dL (0.2 mg/dL) Urine Leukocyte Esterase Negative (NEG) Urine RBC 0 /HPF (0-2) Urine WBC 1-4 /HPF (0-4) Urine Squamous Epithelial Cells Mod /LPF Urine Bacteria Few /HPF (0-FEW) Urine Mucus Mod /LPF POC Urine HCG, Qualitative Hcg negative (Negative) EKG EKG [] Radiology/Procedures Radiology/Procedures [] Course & Med Decision Making Course & Med Decision Making Pertinent Labs and Imaging studies reviewed. (See chart for details) 0300: Urine sample contaminated but not consistent with infection. Patient is not having any dysuria. She has a benign abdomen. No further evaluation necessary at this time. Discussed urine with the patient. ER return precautions given. Patient verbalized understanding. All questions answered. Dragon Disclaimer Dragon Disclaimer This electronic medical record was generated, in whole or in part, using a voice recognition dictation system. Departure Departure Impression: Primary Impression: Abdominal pain Disposition: HOME, SELF-CARE Condition: STABLE Referrals: KHAI KELLEY MD (PCP) Patient Instructions: Abdominal Pain Additional Instructions: Thank you for coming to [facility]. Please read the attached handouts. Please follow-up with your primary care physician. Return to the ER if your symptoms worsen or you have any other concerns. TRETNON GOLDMAN DO Sep 06, 2018 03:17
== END 2018-09-06 03:48 | disposition home or self-care (01) ==
LOC: ER 01:51
DX: R10.30 Lower abdominal pain, unspecified (principal); Z98.890 Other specified postprocedural states; Z87.440 Personal history of urinary (tract) infections
CPT/HCPCS: 81001; 81025; 99283

== ENCOUNTER 2018-10-30 04:28 | Emergency (ER) | payer MEDICARE, OTHER ==
[~2018-10-30] VITALS: Ht 170.2 cm; Wt 122.0 kg
[2018-10-30 04:40] VITALS: BP 142/88
[2018-10-30] MEDS ORDERED: HYDROcodone/APAP 5/325MG 1 TAB TABLET PO ONE (05:45)
[2018-10-30] MEDS ORDERED: HYDR-3164 PO (05:50)
[2018-10-30] MEDS ORDERED: IBUP-1060 PO (05:50)
[2018-10-30] MEDS ORDERED: AMOX500C PO (05:50)
--- NOTE | 2018-10-30 05:50 | PHYS DOC ---
Past Medical History Past Medical History: Hypertension, Other Additional Past Medical Histor: MYASTHANIA GRAVIS, IVIG tx,rituxin Past Surgical History: Other Additional Past Surgical Histo: THYMECTOMY, right fallopian tube, MULTIPLE SKIN GRAFTS Alcohol Use: None Drug Use: None Adult General Chief Complaint Chief Complaint: FACE PROBLEM HPI HPI Patient is a 43 year old female who presents with complaining of facial pain and numbness. Patient states she has history of myasthenia gravis and woke about 4 AM with right facial pain and numbness as a burning pain with radiation to her right eye like her previous episodes of sinus infection. Patient states the numbness is gone but still complaining of pain and rated her pain 8/10. Patient denies headache, fever and chills, focal weakness, chest pain and shortness of breath, . Review of Systems Review of Systems Constitutional: Denies fever or chills [] Eyes: Denies change in visual acuity, redness, or eye pain [] HENT: Denies nasal congestion or sore throat [] Respiratory: Denies cough or shortness of breath [] Cardiovascular: No additional information not addressed in HPI [] GI: Denies abdominal pain, nausea, vomiting, bloody stools or diarrhea [] : Denies dysuria or hematuria [] Musculoskeletal: Denies back pain or joint pain [] Integument: Denies rash or skin lesions [] Neurologic: Denies headache, focal weakness. Endocrine: Denies polyuria or polydipsia [] All other systems were reviewed and found to be within normal limits, except as documented in this note. Allergies Allergies Allergies Coded Allergies Type Severity Reaction Last Updated Verified No Known Drug Allergies 06/30/13 No Physical Exam Physical Exam Constitutional: Well developed, well nourished, mild distress, non-toxic appearance. [] HENT: Normocephalic, atraumatic, bilateral external ears normal, oropharynx moist, no oral exudates, right maxillary facial tenderness with nasal mucosal hypertrophy[] Eyes: PERRLA, EOMI, conjunctiva normal, no discharge. [] Neck: Normal range of motion, no tenderness, supple, no stridor. [] Cardiovascular:Heart rate regular rhythm, no murmur [] Lungs & Thorax: Bilateral breath sounds clear to auscultation [] Extremities: No tenderness, no cyanosis, no clubbing, ROM intact, no edema. [] Neurologic: Alert and oriented X 3, normal motor function, normal sensory function, no focal deficits noted. [] Psychologic: Affect anxious, judgement normal, mood normal. [] Current Patient Data Vital Signs Vital Signs Date Time Temp Pulse Resp B/P (MAP) Pulse Ox O2 Delivery O2 Flow Rate FiO2 10/30/18 04:40 98.1 76 15 142/88 (106) 98 Room Air 98.1 EKG EKG [] Radiology/Procedures Radiology/Procedures [] Dragon Disclaimer Dragon Disclaimer This electronic medical record was generated, in whole or in part, using a voice recognition dictation system. Departure Departure Impression: Primary Impression: Acute sinusitis Additional Impression: Myasthenia gravis Disposition: HOME, SELF-CARE (at 0 548) Condition: IMPROVED Referrals: KHAI KELLEY MD (PCP) Patient Instructions: Sinusitis Additional Instructions: Drink plenty of liquids Follow-up with your primary care physician in 3-5 days Return to ER if not getting better Scripts Hydrocodone/Apap 5-325 (NORCO 5-325 TABLET) 1 Each Tablet 1 TAB PO PRN Q6HRS PRN for PAIN, #10 TAB 0 Refills Prov: BROOKE VIDES MD 10/30/18 Ibuprofen (IBUPROFEN) 800 Mg Tablet 800 MG PO PRN Q8HRS PRN for INFLAMMATION, #20 TAB Prov: BROOKE VIDES MD 10/30/18 Amoxicillin (AMOXICILLIN) 500 Mg Capsule 1 CAP PO Q8HRS for infection, #30 CAP Prov: BROOKE VIDES MD 10/30/18 Problem Qualifiers Primary Impression: Acute sinusitis Sinusitis location: maxillary Recurrence: recurrent Qualified Codes: J01.01 - Acute recurrent maxillary sinusitis BROOKE VIDES MD Oct 30, 2018 05:50
== END 2018-10-30 06:00 | disposition home or self-care (01) ==
LOC: ER 04:28
DX: J01.01 Acute recurrent maxillary sinusitis (principal); G70.00 Myasthenia gravis without (acute) exacerbation; R51 Headache; R20.0 Anesthesia of skin; I10 Essential (primary) hypertension
CPT/HCPCS: 99283

== ENCOUNTER 2019-01-06 21:18 | Emergency (ER) | payer MEDICARE, OTHER ==
[~2019-01-06] VITALS: Ht 170.2 cm; Wt 122.5 kg
[~2019-01-06 21:18] MED LIST changes: -ALBU2.5V8 IH; +AMOX500C PO; +IBUP-1060 PO; +LISI1TAB19 PO; -LISI1TAB5 PO; +PROVENTIL HFA6.7 GM IH
[2019-01-06 21:38] VITALS: BP 155/84
[2019-01-06] MEDS ORDERED: AZIT500T PO (21:55)
--- NOTE | 2019-01-06 21:55 | PHYS DOC ---
Past Medical History Past Medical History: Hypertension, Other Additional Past Medical Histor: MYASTHANIA GRAVIS, IVIG tx,rituxin Past Surgical History: Other Additional Past Surgical Histo: THYMECTOMY, right fallopian tube, MULTIPLE SKIN GRAFTS Alcohol Use: None Drug Use: None Adult General Chief Complaint Chief Complaint: COUGH HPI HPI Patient is a 43 year old female who presents with cough. Persistent hacking dry cough for 2 weeks, nasal congestion, intermittent fevers and body aches. No CP or SOB. reports hx of Bronchitis. Has inhaler but has not been using, states she can not take cough medications due to hx of HTN. No dizziness. she is resting in no distress, persistent cough on exam Review of Systems Review of Systems Constitutional: c/o intermittent fever Eyes: Denies change in visual acuity, redness, or eye pain [] HENT: Denies nasal or sore throat [] Respiratory: Denies shortness of breath [] c/o persistent cough Cardiovascular: No additional information not addressed in HPI [] GI: Denies abdominal pain, nausea, vomiting, bloody stools or diarrhea [] Musculoskeletal: Denies back pain or joint pain []c/o body aches Integument: Denies rash or skin lesions [] Neurologic: Denies headache, focal weakness or sensory changes [] Endocrine: Denies polyuria or polydipsia [] All other systems were reviewed and found to be within normal limits, except as documented in this note. Current Medications Current Medications Current Medications Medications (Trade) Dose Ordered Sig/Dex Start Time Stop Time Status Last Admin Dose Admin Albuterol Sulfate (Ventolin Neb Soln) 2.5 mg 1X ONCE 01/06/19 22:00 01/06/19 22:01 DC 01/06/19 22:06 2.5 MG Azithromycin (Zithromax) 500 mg 1X ONCE 01/06/19 22:00 01/06/19 22:01 DC 01/06/19 21:56 500 MG Allergies Allergies Allergies Coded Allergies Type Severity Reaction Last Updated Verified No Known Drug Allergies 06/30/13 No Physical Exam Physical Exam Constitutional: Well developed, well nourished, no acute distress, non-toxic appearance. [] HENT: Normocephalic, atraumatic, bilateral external ears normal, oropharynx moist, no oral exudates, nose moderate congestion Eyes: PERRLA, EOMI, conjunctiva normal, no discharge. [] Neck: Normal range of motion, no tenderness, supple, no stridor. [] Cardiovascular:Heart rate regular rhythm, no murmur [] Lungs & Thorax: Bilateral breath sounds clear to auscultation, no distress, persistent dry cough on exam Abdomen: Bowel sounds normal, soft, no tenderness, no masses, no pulsatile masses. [] Skin: Warm, dry, no erythema, no rash. [] Extremities: No tenderness, no cyanosis, no clubbing, ROM intact, no edema. [] Neurologic: Alert and oriented X 3, normal motor function, normal sensory function, no focal deficits noted. [] Psychologic: Affect normal, judgement normal, mood normal. [] Current Patient Data Vital Signs Vital Signs Date Time Temp Pulse Resp B/P (MAP) Pulse Ox O2 Delivery O2 Flow Rate FiO2 01/06/19 22:09 98 Room Air 01/06/19 21:38 98.9 106 18 155/84 (107) 98.9 EKG EKG [] Radiology/Procedures Radiology/Procedures [] Impressions: Bronchitis, cough Course & Med Decision Making Course & Med Decision Making Pertinent Labs and Imaging studies reviewed. (See chart for details) []VSS, no hypoxia. Lungs CTA, persistent cough, ongoing for 2 weeks with intermittent fevers. discussed chest xray, she declines albuterol treatment and Zpac Stable for home care, has inhaler, OTC medications for symptoms Call PCP for follow up, educated on home care and reasons to return to the Er Dragon Disclaimer Kendrick Disclaimer This electronic medical record was generated, in whole or in part, using a voice recognition dictation system. Departure Departure Impression: Primary Impression: Bronchitis, acute Disposition: 01 HOME, SELF-CARE Condition: STABLE Referrals: KHAI KELLEY MD (PCP) Patient Instructions: Acute Bronchitis, [id number] Additional Instructions: Go home and rest Motrin and Tylenol for pain Inhaler as needed Zpac as prescribed Call your doctor for follow up, return for any concerns or worsening symptoms Scripts Azithromycin (ZITHROMAX) 500 Mg Tablet 1 TAB PO DAILY, #5 TAB Prov: CHATA RIVER APRN 01/06/19 CHATA RIVER APRN Jan 06, 2019 21:55
[2019-01-06] MEDS ORDERED: AZITHROMYCIN 250 MG TABLET. PO ONE (22:00)
[2019-01-06] MEDS ORDERED: ALBUTEROL SULFATE 2.5 MG/3 ML NEBU. NEB ONE (22:00)
== END 2019-01-06 22:33 | disposition home or self-care (01) ==
LOC: ER 21:18
DX: J20.9 Acute bronchitis, unspecified (principal); I10 Essential (primary) hypertension; R50.9 Fever, unspecified; R42 Dizziness and giddiness; M79.18 Myalgia, other site
CPT/HCPCS: 94640; 99283; J7613; Q0144

== ENCOUNTER 2019-01-19 00:44 | Emergency (ER) | payer MEDICARE, OTHER ==
[~2019-01-19] VITALS: Ht 170.2 cm; Wt 120.2 kg
[~2019-01-19 00:44] MED LIST changes: +ALBU2.5V8 IH; +AZIT500T PO; -PROVENTIL HFA6.7 GM IH
[2019-01-19 00:45] VITALS: BP 158/95
[2019-01-19] MEDS ORDERED: CIPR7.5D LEFT EAR (01:04)
--- NOTE | 2019-01-19 01:04 | PHYS DOC ---
Past Medical History Past Medical History: Hypertension, Other Additional Past Medical Histor: MYASTHANIA GRAVIS, IVIG tx,rituxin (AR MITCHELL APRN) Past Surgical History: Other Additional Past Surgical Histo: THYMECTOMY, right fallopian tube, MULTIPLE SKIN GRAFTS (AR MITCHELL APRN) Alcohol Use: None Drug Use: None (AR MITCHELL APRN) Attending Signature I have participated in the care of this patient and I have reviewed and agree with all pertinent clinical information above including history, exam, and recommendations. (ECHO SINGH MD) Adult General Chief Complaint Chief Complaint: EARACHE/EAR PAIN HPI HPI Patient is a 43 year old female who presents with began having left ear pain 1 days ago and decided to but water in a bulb syringe and was flushing out ear when she suddenly had hearing loss. (AR MITCHELL APRN) Review of Systems Review of Systems HENT: Denies nasal congestion or sore throat. Left ear pain. [] All other systems were reviewed and found to be within normal limits, except as documented in this note. (AR MITCHELL APRN) Allergies Allergies Allergies Coded Allergies Type Severity Reaction Last Updated Verified No Known Drug Allergies 06/30/13 No (ECHO SINGH MD) Physical Exam Physical Exam Constitutional: Well developed, well nourished, no acute distress, non-toxic appearance. [] HENT: Normocephalic, atraumatic, bilateral external ears normal, oropharynx moist, no oral exudates, nose normal. Left tympanic ruptured. [] Eyes: PERRLA, EOMI, conjunctiva normal, no discharge. [] Neck: Normal range of motion, no tenderness, supple, no stridor. [] ] Skin: Warm, dry, no erythema, no rash. [] Neurologic: Alert and oriented X 3, normal motor function, normal sensory function, no focal deficits noted. [] Psychologic: Affect normal, judgement normal, mood normal. [] (AR MITCHELL APRN) Current Patient Data Vital Signs Vital Signs Date Time Temp Pulse Resp B/P (MAP) Pulse Ox O2 Delivery O2 Flow Rate FiO2 01/19/19 00:45 97.9 80 20 158/95 (116) 99 Room Air 97.9 (ECHO SINGH MD) EKG EKG [] (AR MITCHELL APRN) Radiology/Procedures Radiology/Procedures [] (AR MITCHELL APRN) Course & Med Decision Making Course & Med Decision Making Patient rates her pain a 7/10. Patient has a rupture ear drum upon arrival. No redness in the canal is seen. Tenderness with examination. Afebrile. Ambulatory with steady gait. Denies soa, chest pain, dizziness, headache, nausea, vomiting, tinnitus. (AR MITCHELL APRN) Dragon Disclaimer Dragon Disclaimer This electronic medical record was generated, in whole or in part, using a voice recognition dictation system. (AR MITCHELL APRN) Departure Departure Impression: Primary Impression: Ruptured tympanic membrane Disposition: HOME, SELF-CARE Condition: STABLE Referrals: KHAI KELLEY MD (PCP) Patient Instructions: Tympanic Membrane Perforation-SportsMed Additional Instructions: Do not stick anything in the ear other than the medication prescribed. Follow up with primary care provider. Scripts Ciprofloxacin Hcl/Dexameth (CIPRODEX OTIC SUSPENSION) 7.5 Ml Drops.susp 4 DROP LEFT EAR BID, #1 BOTTLE Prov: AR MITCHELL APRN 01/19/19 Problem Qualifiers Primary Impression: Ruptured tympanic membrane Laterality: left Qualified Codes: H72.92 - Unspecified perforation of tympanic membrane, left ear AR MITCHELL APRN Jan 19, 2019 01:04 ECHO SINGH MD Jan 19, 2019 18:21
== END 2019-01-19 01:06 | disposition home or self-care (01) ==
LOC: ER 00:44
DX: H72.92 Unspecified perforation of tympanic membrane, left ear (principal); I10 Essential (primary) hypertension
CPT/HCPCS: 99283

== ENCOUNTER 2019-01-22 01:33 | Emergency (ER) | payer MEDICARE, OTHER ==
[~2019-01-22] VITALS: Ht 170.2 cm; Wt 117.9 kg
[~2019-01-22 01:33] MED LIST changes: +CIPR7.5D LEFT EAR
[2019-01-22 02:05] VITALS: BP 158/80
[2019-01-22] MEDS ORDERED: cefTRIAXone IM 1 GM VIAL IM ONE (02:30)
[2019-01-22] MEDS ORDERED: HYDR-3164 PO (02:43)
--- NOTE | 2019-01-22 02:43 | PHYS DOC ---
Past Medical History Past Medical History: Hypertension, Other Additional Past Medical Histor: MYASTHANIA GRAVIS, IVIG tx,rituxin Past Surgical History: Other Additional Past Surgical Histo: THYMECTOMY, right fallopian tube, MULTIPLE SKIN GRAFTS Alcohol Use: Occasionally Drug Use: None Adult General Chief Complaint Chief Complaint: EARACHE/EAR PAIN [facility] HPI Patient is a 43 year old female who presents with of left ear pain. Patient complaining of left ear pain and decrease of hearing for the last 4 days and states that she was seen in this emergency room and diagnosed with ruptured tympanic membrane and treated with or seek antibiotic and amoxicillin without improvement of her condition. Patient states she has appointment with ENT in 2 days but her pain became worse tonight. Patient denies fever and chills, nausea and vomiting, ear drainage. Review of Systems Review of Systems Constitutional: Denies fever or chills [] Eyes: Denies change in visual acuity, redness, or eye pain [] HENT: Denies nasal congestion or sore throat, reports ear pain [] Respiratory: Denies cough or shortness of breath [] Cardiovascular: No additional information not addressed in HPI [] GI: Denies abdominal pain, nausea, vomiting, bloody stools or diarrhea [] : Denies dysuria or hematuria [] Musculoskeletal: Denies back pain or joint pain [] Integument: Denies rash or skin lesions [] Neurologic: Denies headache, focal weakness or sensory changes [] Endocrine: Denies polyuria or polydipsia [] All other systems were reviewed and found to be within normal limits, except as documented in this note. Current Medications Current Medications Current Medications Medications (Trade) Dose Ordered Sig/Dex Start Time Stop Time Status Last Admin Dose Admin Ceftriaxone Sodium (Rocephin Im) 1 gm 1X ONCE 01/22/19 02:30 01/22/19 02:31 DC 01/22/19 02:34 1 GM Ibuprofen (Motrin) 800 mg 1X ONCE 01/22/19 02:45 01/22/19 02:46 DC 01/22/19 02:38 800 MG Allergies Allergies Allergies Coded Allergies Type Severity Reaction Last Updated Verified No Known Drug Allergies 06/30/13 No Physical Exam Physical Exam Constitutional: Well developed, well nourished, mild distress, non-toxic appearance. [] HENT: Normocephalic, atraumatic, left canal with erythema and edema and tenderness, unable to see tympanic membrane, oropharynx moist, no oral exudates, nose normal. [] Eyes: PERRLA, EOMI, conjunctiva normal, no discharge. [] Neck: Normal range of motion, no tenderness, supple, no stridor. [] Cardiovascular:Heart rate regular rhythm, no murmur [] Lungs & Thorax: Bilateral breath sounds clear to auscultation [] Extremities: No tenderness, no cyanosis, no clubbing, ROM intact, no edema. [] Neurologic: Alert and oriented X 3, normal motor function, normal sensory function, no focal deficits noted. [] Psychologic: Affect normal, judgement normal, mood normal. [] Current Patient Data Vital Signs Vital Signs Date Time Temp Pulse Resp B/P (MAP) Pulse Ox O2 Delivery O2 Flow Rate FiO2 01/22/19 02:05 97.6 69 17 158/80 (106) 98 Room Air 97.6 EKG EKG [] Radiology/Procedures Radiology/Procedures [] Course & Med Decision Making Course & Med Decision Making Evaluation of patient in ER showed 43-year-old female patient complaining of left ear pain. Patient currently on an oral antibiotic for otitis. Patient had erythema and edema left earache tenderness and treated with Rocephin and ibuprofen in ER with improvement of her condition. Patient was advised to continue home amoxicillin and prescription for Viola was given. Patient was advised to follow-up with her appointment with her ENT in 2 days. Dragon Disclaimer Dragon Disclaimer This electronic medical record was generated, in whole or in part, using a voice recognition dictation system. Departure Departure Impression: Primary Impression: Left otitis externa Disposition: 01 HOME, SELF-CARE (at 0241) Condition: IMPROVED Referrals: KHAI KELLEY MD (PCP) Patient Instructions: Otitis Externa Additional Instructions: Drink plenty of liquids Follow-up with your ENT appointment in 2 days Return to ER if not getting better Scripts Hydrocodone/Apap 5-325 (NORCO 5-325 TABLET) 1 Each Tablet 1 TAB PO PRN Q6HRS PRN for PAIN, #10 TAB 0 Refills Prov: BROOKE VIDES MD 01/22/19 Problem Qualifiers Primary Impression: Left otitis externa Otitis externa type: unspecified type Chronicity: acute Qualified Codes: H60.502 - Unspecified acute noninfective otitis externa, left ear BROOKE VIDES MD Jan 22, 2019 02:43
[2019-01-22] MEDS ORDERED: IBUPROFEN 400 MG TABLET. PO ONE (02:45)
== END 2019-01-22 03:10 | disposition home or self-care (01) ==
LOC: ER 01:33
DX: H60.502 Unspecified acute noninfective otitis externa, left ear (principal); I10 Essential (primary) hypertension
CPT/HCPCS: 96372; 99283; J0696

== ENCOUNTER 2019-03-05 11:38 | Emergency (ER) | payer MEDICARE, OTHER ==
[~2019-03-05] VITALS: Ht 170.2 cm; Wt 125.6 kg
[~2019-03-05 11:38] MED LIST changes: -ALBU2.5V8 IH; +PROVENTIL HFA6.7 GM IH
--- NOTE | 2019-03-05 12:49 | RAD ---
EXAM: Abdomen, 2 views. HISTORY: Constipation. COMPARISON: None. FINDINGS: 2 views of the abdomen were obtained. There is moderate stool within the colon. No abnormally dilated air-filled loop of bowel is seen. There is no free air. IMPRESSION: Moderate colonic stool. Electronically signed by: Valarie Latham MD (03/05/2019 12:46 PM) [id number]
[2019-03-05] MEDS ORDERED: PEG4000S8 PO ×2 (13:22→13:27)
[2019-03-05] MEDS ORDERED: MAGN296S9 PO ×2 (13:22→13:27)
--- NOTE | 2019-03-05 13:24 | PHYS DOC ---
Past Medical History Past Medical History: Hypertension, Other Additional Past Medical Histor: MYASTHANIA GRAVIS, IVIG tx,rituxin Past Surgical History: Other Additional Past Surgical Histo: THYMECTOMY, right fallopian tube, MULTIPLE SKIN GRAFTS Alcohol Use: Occasionally Drug Use: None Adult General Chief Complaint Chief Complaint: ABDOMINAL PAIN HPI HPI Patient is a 43 year old female patient with history of hypertension, female patient with history of hypertension IBS, myasthenia gravis and chronic constipation who presents with complaining of abdominal pain.patient states she usually has bowel movements once a week but after her last bowel movement 5 days ago she has had pain in anal area related to hemorrhoid and discomfort abdominal pain.patient states she has feeling of bowel movement but does not have any bowel movement even she took prune juice that usually works for her constipation.denies nausea and vomiting, fever and chills, urinary symptom, chest pain and shortness of breath. Review of Systems Review of Systems Constitutional: Denies fever or chills [] Eyes: Denies change in visual acuity, redness, or eye pain [] HENT: Denies nasal congestion or sore throat [] Respiratory: Denies cough or shortness of breath [] Cardiovascular: No additional information not addressed in HPI [] GI: reports abdominal pain, denies nausea, vomiting, bloody stools or diarrhea [] : Denies dysuria or hematuria [] Musculoskeletal: Denies back pain or joint pain [] Integument: Denies rash or skin lesions [] Neurologic: Denies headache, focal weakness or sensory changes [] Endocrine: Denies polyuria or polydipsia [] All other systems were reviewed and found to be within normal limits, except as documented in this note. Allergies Allergies Allergies Coded Allergies Type Severity Reaction Last Updated Verified No Known Drug Allergies 06/30/13 No Physical Exam Physical Exam Constitutional: Well developed, well nourished, mild distress, non-toxic appearance. [] HENT: Normocephalic, atraumatic. Eyes: PERRLA, EOMI, conjunctiva normal, no discharge. [] Neck: Normal range of motion, no tenderness, supple, no stridor. [] Cardiovascular:Heart rate regular rhythm, no murmur [] Lungs & Thorax: Bilateral breath sounds clear to auscultation [] Abdomen: Bowel sounds normal, soft, no tenderness, no masses, no pulsatile masses. rectal exam in present of airline reservationist showed small hemorrhoidal tag without active bleeding, a small amount of stool in the rectum. Skin: Warm, dry, no erythema, no rash. [] Back: No tenderness, no CVA tenderness. [] Extremities: No tenderness, no cyanosis, no clubbing, ROM intact, no edema. [] Neurologic: Alert and oriented X 3, no focal deficits noted. [] Psychologic: Affect normal, judgement normal, mood normal. [] Current Patient Data Vital Signs Vital Signs Date Time Temp Pulse Resp B/P (MAP) Pulse Ox O2 Delivery O2 Flow Rate FiO2 03/05/19 11:45 98.2 65 16 151/72 (98) 96 Room Air 98.2 Lab Values Laboratory Tests Test 03/05/19 11:55 POC Urine HCG, Qualitative Hcg negative (Negative) EKG EKG [] Radiology/Procedures Radiology/Procedures [][facility] [address] [place] [address] IMAGING REPORT Signed PATIENT: DAVID GALLARDO ACCOUNT: [id number] : 1975 LOCATION: ER AGE: 43 SEX: F EXAM STATUS: REG ER ORD. PHYSICIAN: BROOKE VIDES MD REASON: Constipation PROCEDURE: ABDOMEN SUPINE & UPRIGHT EXAM: Abdomen, 2 views. HISTORY: Constipation. COMPARISON: None. FINDINGS: 2 views of the abdomen were obtained. There is moderate stool within the colon. No abnormally dilated air-filled loop of bowel is seen. There is no free air. IMPRESSION: Moderate colonic stool. Electronically signed by: aVlarie Dunn MD (03/05/2019 12:46 PM) [facility] DICTATED and SIGNED BY: VALARIE DUNN MD DATE: 03/05/19 1246 Course & Med Decision Making Course & Med Decision Making I've spoken with the patient and/or caregivers. I've explained the patient's condition, diagnosis and treatment plan based on information available to me at this time. I've answered the patient's and/or caregivers questions and addressed any concerns. The patient and/or caregivers have a good understanding the patient's diagnosis, condition and treatment plan as can be expected at this point. Vital signs have been stabilized. The patient's condition is stable for discharge from the emergency department. The patient will pursue further outpatient evaluation with her primary care provider or other designated consulting physician as outlined in the discharge instructions. Patient and/or caregivers are agreeable to this plan of care and follow-up instructions have been explained in detail. The patient and/or caregivers have received these instructions in written format and expressed understanding of these discharge instructions. The patient and her caregivers are aware that if any significant change in condition or worsening of symptoms should prompt him to immediately return to this of the closest emergency department. If an emergent department is not readily available I would encourage him to call 911. Dragon Disclaimer Dragon Disclaimer This electronic medical record was generated, in whole or in part, using a voice recognition dictation system. Departure Departure Impression: Primary Impression: Constipation Disposition: HOME, SELF-CARE (at 1320) Condition: STABLE Referrals: KHAI KELLEY MD (PCP) Patient Instructions: Constipation, Adult Additional Instructions: Drink plenty of liquids Follow-up with your primary care physician in 3-5 days Return to ER if not getting better Take [id number] MiraLAX Take GoLYTELY if other medication does not help for your constipation Scripts Magnesium Citrate (MAGNESIUM CITRATE) 296 Ml Solution 296 ML PO ONCE, #296 ML Drink half a bottle every 12 hours as needed for constipation Prov: BROOKE VIDES MD 03/05/19 Peg 3350/Na Sulf,Bicarb,Cl/Kcl (GOLYTELY SOLUTION) 4,000 Ml Soln.recon 4000 ML PO 1X, #1 MISC Drink 1 cup every an hour until having a bowel movements Prov: BROOKE VIDES MD 03/05/19 Problem Qualifiers Primary Impression: Constipation Constipation type: unspecified constipation type Qualified Codes: K59.00 - Constipation, unspecified BROOKE VIDES MD Mar 05, 2019 13:23
== END 2019-03-05 13:55 | disposition home or self-care (01) ==
LOC: ER 11:38
DX: K59.00 Constipation, unspecified (principal); I10 Essential (primary) hypertension; K58.9 Irritable bowel syndrome, unspecified
CPT/HCPCS: 74021; 81025; 99284

== ENCOUNTER 2021-07-18 06:26 | Emergency (ER) | payer MEDICARE, OTHER ==
[~2021-07-18] VITALS: Ht 170.2 cm; Wt 130.0 kg
[~2021-07-18 06:26] MED LIST changes: -CETI10TA22 PO; +CETI10TA74 PO; +CLIN-94 PO; -CLIN300C8 PO; -LISI1TAB19 PO; +LISI1TAB37 PO; +MAGN296S68 PO; +NAPR-699 PO; -NAPR250T6 PO; +PEG4000S8 PO
[2021-07-18] MEDS ORDERED: DICY10CA3 PO (06:56)
[2021-07-18] MEDS ORDERED: DICYCLOMINE HCL 10 MG CAPSULE PO ONE (07:00)
--- NOTE | 2021-07-18 07:00 | PHYS DOC ---
Past Medical History Past Medical History: Hypertension, Other Additional Past Medical Histor: MYASTHANIA GRAVIS, IVIG tx,rituxin; IBS Past Surgical History: Other Additional Past Surgical Histo: SKIN GRAFTS Smoking Status: Never Smoker Alcohol Use: None Drug Use: None General Adult EDM: Chief Complaint: GI PROBLEM HPI: HPI: Patient is a 46 year old female with past medical history of irritable bowel syndrome presents with excessive gas. Patient states that she has irritable bowel syndrome and when she feels like this she usually takes Bentyl with good relief. Patient states that she has run out of her prescription, she attempted to call her clinic this morning and the on-call physician stated that she would have to go to urgent care since it is the weekend or follow-up on a weekday. Patient presents here because she would like to have a refill of Bentyl. Patient states that this is all she would like. She is feeling well otherwise. Review of Systems: Review of Systems: Constitutional: Denies fever or chills. [] Eyes: Denies change in visual acuity. [] HENT: Denies nasal congestion or sore throat. [] Respiratory: Denies cough or shortness of breath. [] Cardiovascular: Denies chest pain or edema. [] GI: Denies abdominal pain, nausea, vomiting, bloody stools or diarrhea. [] : Denies dysuria. [] Musculoskeletal: Denies back pain or joint pain. [] Integument: Denies rash. [] Neurologic: Denies headache, focal weakness or sensory changes. [] Endocrine: Denies polyuria or polydipsia. [] Lymphatic: Denies swollen glands. [] Psychiatric: Denies depression or anxiety. [] Heart Score: C/O Chest Pain: No Risk Factors: Risk Factors: DM, Current or recent (<one month) smoker, HTN, HLP, family history of CAD, obesity. Risk Scores: Score 0 - 3: 2.5% MACE over next 6 weeks - Discharge Home Score 4 - 6: 20.3% MACE over next 6 weeks - Admit for Clinical Observation Score 7 - 10: 72.7% MACE over next 6 weeks - Early Invasive Strategies Current Medications: Current Medications Medications (Trade) Dose Ordered Sig/Dex Start Time Stop Time Status Last Admin Dose Admin Dicyclomine HCl (Bentyl) 10 mg 1X ONCE 07/18/21 07:00 07/18/21 07:01 Allergies: Allergies: Allergies Coded Allergies Type Severity Reaction Last Updated Verified No Known Drug Allergies 06/30/13 No Physical Exam: PE: Constitutional: Well developed, well nourished, no acute distress, non-toxic appearance. [] HENT: Normocephalic, atraumatic, bilateral external ears normal, oropharynx moist, no oral exudates, nose normal. [] Eyes: PERRLA, EOMI, conjunctiva normal, no discharge. [] Neck: Normal range of motion, no tenderness, supple, no stridor. [] Cardiovascular:Heart rate regular rhythm, no murmur [] Lungs & Thorax: Bilateral breath sounds clear to auscultation [] Abdomen: Bowel sounds normal, soft, no tenderness, no masses, no pulsatile masses. [] Skin: Warm, dry, no erythema, no rash. [] Back: No tenderness, no CVA tenderness. [] Extremities: No tenderness, no cyanosis, no clubbing, ROM intact, no edema. [] Neurologic: Alert and oriented X 3, normal motor function, normal sensory function, no focal deficits noted. [] Psychologic: Affect normal, judgement normal, mood normal. [] Current Patient Data: Vital Signs: Vital Signs Date Time Temp Pulse Resp B/P (MAP) Pulse Ox O2 Delivery O2 Flow Rate FiO2 07/18/21 06:34 98.8 77 18 147/93 (111) 98 Room Air 98.8 EKG: EKG: [] Radiology/Procedures: Radiology/Procedures: [] Impression: Irritable bowel syndrome Course & Med Decision Making: Course & Med Decision Making Pertinent Labs and Imaging studies reviewed. (See chart for details) Seen and evaluated by myself, patient stable. Denies abdominal pain. Patient states that she is excessively gassy. Patient states that she would like a prescription for Bentyl. I offered a prescription refill and patient stated that this would suffice. I ordered a one-time dose of Bentyl in the emergency department. All questions answered. Encourage patient to follow-up with your primary care physician this week. She stated that she would like to do so. Patient hemodynamically stable at the time of discharge. Dragon Disclaimer: Draghaley Disclaimer: This electronic medical record was generated, in whole or in part, using a voice recognition dictation system. Departure Departure Impression: Primary Impression: IBS (irritable bowel syndrome) Disposition: HOME / SELF CARE / HOMELESS Condition: GOOD Patient Instructions: Irritable Bowel Syndrome Additional Instructions: Follow-up with your primary care physician in 1 to 2 weeks Scripts Dicyclomine Hcl (DICYCLOMINE HCL) 10 Mg Capsule 1 CAP PO DAILY PRN for ABDOMINAL CRAMPS, #30 CAP 3 Refills Prov: DINESH PINEDA MD 07/18/21 DINESH PINEDA MD July 18, 2021 07:00
[2021-07-18 07:07] VITALS: BP 147/93
== END 2021-07-18 07:08 | disposition home or self-care (01) ==
LOC: ER 06:26
DX: K58.9 Irritable bowel syndrome, unspecified (principal); I10 Essential (primary) hypertension
CPT/HCPCS: 99283